=== PATIENT | female | born 1950 | race Two or more races ===

== ENCOUNTER 2016-10-24 13:27 | Emergency (ER) | payer MEDICAID, OTHER ==
--- NOTE | 2016-10-24 14:25 | ER Document Report ---
ED Medical Screen (RME) - General Chief Complaint: Breathing Difficulty Stated Complaint: BREATHING PROBLEMS Time seen by provider: 14:20 Mode of Arrival: Ambulatory TRAVEL OUTSIDE OF THE [place] IN LAST 30 DAYS: No - HPI Patient complains to provider of: DRY COUGH, COPD ACTING UP, DIFFICULTY BREATHING Onset: Other - LAST NIGHT, BETTER TODAY Onset/Duration: Intermittent Context: PT STATES SHE FEELS BETTER TODAY. Quality of pain: No pain Severity: None Pain Level: Denies Associated Symptoms: Cough (nonproductive), Hurts to breath, Shortness of breath. denies: Chest pain, Fever, Rhinorrhea, Sinus pain/drainage Exacerbated by: Coughing Relieved by: Other - INHALER Similar symptoms previously: Yes Recently seen / treated by doctor: Yes - [facility] - Related Data Smoking: Quit greater than 1 year Frequency of alcohol use: None Drug Abuse: None Pertinent History: COPD Allergies/Adverse Reactions: peanut Allergy (Intermediate, Verified 10/24/16 13:41) Hives grape [Grape] Allergy (Mild, Verified 10/24/16 13:41) Hives tomato [Tomato] Allergy (Mild, Verified 10/24/16 13:41) Hives ciprofloxacin [From Cipro] Allergy (Verified 10/24/16 13:41) Difficulty breathing ciprofloxacin HCl [From Cipro] Allergy (Verified 10/24/16 13:41) Past Medical History - General Last Menstrual Period: n/a - Social History Frequency of alcohol use: None Drug Abuse: None - Past Medical History Cardiac Medical History: Reports: Hx Hypertension Pulmonary Medical History: Reports: Hx Asthma, Hx COPD Neurological Medical History: GI Medical History: Reports: Hx Gastroesophageal Reflux Disease Musculoskeltal Medical History: Reports Hx Arthritis, Reports Hx Musculoskeletal Trauma - Wrist Traumatic Medical History: Reports: Hx Fractures - Wrist Past Surgical History: Reports: Hx Breast Surgery - mass removed, Hx Cholecystectomy, Hx Hysterectomy, Hx Orthopedic Surgery - left foot - Immunizations Hx Diphtheria, Pertussis, Tetanus Vaccination: No Physical Exam - Vital signs Vitals: Temp Pulse Resp BP Pulse Ox 98.1 F 69 16 115/69 99 10/24/16 13:38 10/24/16 13:38 10/24/16 13:38 10/24/16 13:38 10/24/16 13:38 Course - Vital Signs Vital signs: Temp Pulse Resp BP Pulse Ox 98.1 F 69 16 115/69 99 01/03/17 13:38 10/24/16 13:38 10/24/16 13:38 10/24/16 13:38 10/24/16 13:38
[2016-10-24] MEDS ORDERED: ALBUTEROL SULFATE 0.083% NEB 2.5 MG/3 ML AMPUL NEB ONE (14:29)
--- NOTE | 2016-10-24 17:39 | ER Document Report ---
ED Respiratory Problem - General Chief Complaint: Breathing Difficulty Stated Complaint: BREATHING PROBLEMS Mode of Arrival: Ambulatory Notes: Patient says she began to experience trouble breathing about 7 PM last night. [place] as if the right side of her lung was not expanding like the other side. She wasn't able to sleep the entire night nor today. Patient says this has happened to her previously in the recent past. Was not doing anything unusual. Was sitting at her computer when the onset of her symptoms. Patient has not had any significant cough or chest congestion or symptoms of a lung infection. Has not had any fever. She's not vomiting and not diarrhea, but has had some constipation. Patient is to be scheduled for a total knee replacement. She is getting pulmonary function test done to see if she can tolerate the procedure. She has seen a local steel fabricator whose diagnosed her with COPD. Patient has not smoked cigarettes in about 4-5 weeks. Patient has an albuterol nebulizer at home and an Advair inhaler. In the past when she's had episodes like this, she has used a relative's inhaler of albuterol and its relieved her symptoms. Patient denies being under stress or having significant anxiety, etc. Denies leg swelling or pains or any history of blood clots. TRAVEL OUTSIDE OF THE [place] IN LAST 30 DAYS: No - Related Data Allergies/Adverse Reactions: peanut Allergy (Intermediate, Verified 10/24/16 13:41) Hives grape [Grape] Allergy (Mild, Verified 10/24/16 13:41) Hives tomato [Tomato] Allergy (Mild, Verified 10/24/16 13:41) Hives ciprofloxacin [From Cipro] Allergy (Verified 10/24/16 13:41) Difficulty breathing ciprofloxacin HCl [From Cipro] Allergy (Verified 10/24/16 13:41) Past Medical History - General Information source: Patient Last Menstrual Period: n/a - Social History Smoking Status: Former Smoker Cigarette use (# per day): No Frequency of alcohol use: None Drug Abuse: None Family History: Reviewed & Not Pertinent, Arthritis, DM, Hyperlipidemia, Malignancy - Past Medical History Cardiac Medical History: Reports: Hx Hypertension Denies: Hx Coronary Artery Disease Pulmonary Medical History: Reports: Hx Asthma, Hx COPD Neurological Medical History: GI Medical History: Reports: Hx Gastroesophageal Reflux Disease Musculoskeltal Medical History: Reports Hx Arthritis, Reports Hx Musculoskeletal Trauma - Wrist Traumatic Medical History: Reports: Hx Fractures - Wrist Past Surgical History: Reports: Hx Breast Surgery - mass removed, Hx Cholecystectomy, Hx Hysterectomy, Hx Orthopedic Surgery - left foot - Immunizations Hx Diphtheria, Pertussis, Tetanus Vaccination: No Review of Systems - Review of Systems Notes: REVIEW OF SYSTEMS: CONSTITUTIONAL : Denies fever. EENT: Denies eye, ear, nose or mouth or throat pain or other symptoms. CARDIOVASCULAR: Denies chest pain. RESPIRATORY: Denies cough, chest congestion, or shortness of breath. See history of present illness. GASTROINTESTINAL: Denies abdominal pain or nausea, vomiting, or diarrhea. GENITOURINARY: Denies difficulty or painful urinating, urinary frequency, blood in urine. MUSCULOSKELETAL: Denies back or neck pain. Denies joint pain or swelling. SKIN: Denies rash or skin lesions. NEUROLOGICAL: Denies LOC or altered mental status. Denies headache. Denies sensory loss or motor deficits. PSYCHIATRIC: Denies anxiety or stress. Denies depression. ALL OTHER SYSTEMS REVIEWED AND NEGATIVE. Physical Exam - Vital signs Vitals: Temp Pulse Resp BP Pulse Ox 98.1 F 69 16 115/69 99 10/24/16 13:38 10/24/16 13:38 10/24/16 13:38 10/24/16 13:38 10/24/16 13:38 Interpretation: Normal - Notes Notes: PHYSICAL EXAMINATION: GENERAL: Well-appearing, in no acute distress. All vital signs normal. Not tachycardic. Not hypoxic. Not tachypnea. Anxious. HEAD: Atraumatic, normocephalic. NECK: Normal range of motion, supple. LUNGS: Breath sounds clear and equal bilaterally. No wheezes heard. Good air exchange bilaterally. HEART: Regular rate and rhythm without murmurs. ABDOMEN: Soft, nontender. No guarding or rebound. BACK: No tenderness throughout entire back. EXTREMITIES: Normal range of motion without pain. NEUROLOGICAL: Normal speech, normal gait. Normal sensory, motor, and reflex exams. Awake, alert, and oriented x3. Cranial nerves normal. PSYCH: Normal mood, normal affect. SKIN: Warm, dry, no rashes. Course - Re-evaluation Re-evalutation: 10/24/16 17:41 Patient looks very well. Has normal vital signs. Only waiting to find out her results of her chest x-ray which I told her is normal. Patient is agreeable to no further workup at this time and to return if she has recurrent or worsening or new symptoms. - Vital Signs Vital signs: Temp Pulse Resp BP Pulse Ox 98.1 F 69 16 115/69 99 10/24/16 13:38 10/24/16 13:38 10/24/16 13:38 10/24/16 13:38 10/24/16 13:38 - Diagnostic Test Radiology reviewed: Image reviewed, Reports reviewed - Chest x-ray shows no acute findings. Discharge - Discharge Clinical Impression: COPD (chronic obstructive pulmonary disease) Qualifiers: COPD type: unspecified COPD Qualified Code(s): J44.9 - Chronic obstructive pulmonary disease, unspecified Condition: Stable Disposition: HOME, SELF-CARE Additional Instructions: Chronic Obstructive Lung Disease You have chronic obstructive lung disease (COPD). The symptoms come from emphysema (damage to small airways, with trapping of air in large sacks in the lung) and chronic bronchitis (repeated infection and damage to larger airways). The cause is almost always cigarette smoking, although dust exposure, asthma, and infections contribute. You should avoid fumes, dust, and smoke (especially tobacco smoke). Your condition will flare from time to time. There is no cure, but the symptoms can be treated. Bronchodilators (asthma medicine) are often helpful. Antibiotics help when infection is present. When shortness of breath is severe, we may prescribe cortisone medication. If medicine doesn't help enough, we can arrange for you to have an oxygen tank at home. Notify your doctor at once if sputum becomes thick, foul, or bloody, if you develop a fever or chest pain, or if your shortness of breath worsens. NORMAL EXAM AND WORKUP: At this time, your examination and workup show no significant abnormality. No significant abnormal physical findings were noted. All laboratory, EKG, and imaging (x-ray, CT scans, ultrasound) studies that were ordered show no significant abnormality. Although your examination and all studies that were ordered showed no significant abnormal finding, there are no examinations and no studies that are 100% accurate. There is always the possibility that some abnormality could exist and not be detected with physical examination or within the limits and capabilities of laboratory and other studies. You should return or follow up as you were instructed on your visit today for further evaluation if your symptoms do not resolve. Bronchodilators You have received a prescription for a bronchodilator -- a medication which stimulates the airways in the lung to dilate. This improves the flow of air in asthma, bronchitis, and emphysema. These medicines have some similarity to adrenaline, and can cause similar side effects: shakiness, racing heart, and a sense of nervousness. These side effects decrease after you've taken the medicine a day or two. Contact your doctor if these side effects are severe. FOLLOW-UP CARE: If you have been referred to a physician for follow-up care, call the physician s office for an appointment as you were instructed or within the next two days. If you experience worsening or a significant change in your symptoms, notify the physician immediately or return to the Emergency Department at any time for re-evaluation. Return at any time if you develop new or worsening symptoms. Prescriptions: Albuterol Sulfate [Ventolin Hfa] 1 - 2 puff IH Q4HP PRN #1 [email or web address] PRN Reason:
[2016-10-24 17:54] VITALS: BP 124/73
== END 2016-10-24 17:55 | disposition home or self-care (01) ==
LOC: ER 13:27
DX: J44.9 Chronic obstructive pulmonary disease, unspecified (principal); R06.02 Shortness of breath; K59.00 Constipation, unspecified; Z87.891 Personal history of nicotine dependence
CPT/HCPCS: 71020; 94640; 99284

== ENCOUNTER → 2016-11-23 | Outpatient (CLI) | payer MEDICAID ==
[2016-11-23 15:59] LABS: APPEARANCE,URINE SLIGHTLY-CLOUDY; BILIRUBIN,URINE NEGATIVE (NEGATIVE); GLUCOSE, URINE NEGATIVE (NEGATIVE); KETONES,URINE TRACE mg/dL (NEGATIVE); LEUKOCYTE ESTERASE,URINE NEGATIVE (NEGATIVE); NITRITE,URINE NEGATIVE (NEGATIVE); PROTEIN,URINE NEGATIVE (NEGATIVE); URINE SPECIFIC GRAVITY 1.026; UROBILINOGEN,URINE NEGATIVE mg/dL (<2.0)
[2016-11-23 16:01] LABS: ABSOLUTE EOSINOPHILS # (AUTO) 0.2 10^3/uL (0.0-0.6); ABSOLUTE LYMPHOCYTES (AUTO) 1.9 10^3/uL (0.5-4.7); ABSOLUTE MONOCYTES (AUTO) 0.4 10^3/uL (0.1-1.4); ABSOLUTE NEUT (AUTO) 4.8 10^3/uL (1.7-8.2); BASOPHILS % (AUTO) 0.4 % (0-2); EOSINOPHILS % (AUTO) 2.9 % (0-6); HEMATOCRIT 33.1 % (36.0-47.0); HEMOGLOBIN 11.6 g/dL (12.0-15.5); HGB HCT DIFFERENCE 1.7; LYMPHOCYTES % (AUTO) 26.2 % (13-45); MEAN CORPUSCULAR HEMOGLOBIN 30.3 pg (27.0-33.4); MEAN CORPUSCULAR HGB CONC 34.9 g/dL (32.0-36.0); MEAN CORPUSCULAR VOLUME 87 fl (80-97); MONOCYTES % (AUTO) 5.3 % (3-13); RED BLOOD COUNT 3.82 10^6/uL (3.72-5.28); SEGMENTED NEUTROPHILS % (AUTO) 65.2 % (42-78); WHITE BLOOD COUNT 7.4 10^3/uL (4.0-10.5)
[2016-11-23 16:19] LABS: ANION GAP 12 (5-19); BLOOD UREA NITROGEN 24 mg/dL (7-20); CALCIUM 9.7 mg/dL (8.4-10.2); CARBON DIOXIDE 29 mmol/L (22-30); CHLORIDE 102 mmol/L (98-107); CREATININE RESULT 0.94 mg/dL (0.52-1.25)
[2016-11-23 16:24] LABS: GLUCOSE 100 mg/dL (75-110)
--- NOTE | 2016-11-23 22:13 | EKG REPORT ---
SEVERITY:- NORMAL ECG - SINUS RHYTHM : Confirmed by: David Thakkar 23-Nov-2016 22:12:41
== END ==
LOC: OD 14:46
PROVIDERS: ATTEND Orthopaedic Surgery
DX: Z01.810 Encounter for preprocedural cardiovascular examination (principal); Z01.811 Encounter for preprocedural respiratory examination; Z01.818 Encounter for other preprocedural examination; Z79.899 Other long term (current) drug therapy; M17.11 Unilateral primary osteoarthritis, right knee
CPT/HCPCS: 36415; 71020; 80048; 81001; 85025; 93005; 93010

== ENCOUNTER 2017-01-08 07:30 | Inpatient (IN) | payer MEDICAID ==
[2016-12-28 12:21] LABS: HEMATOCRIT 32.1 % (36.0-47.0); HGB HCT DIFFERENCE 0.9; MEAN CORPUSCULAR HEMOGLOBIN 29.8 pg (27.0-33.4); MEAN CORPUSCULAR HGB CONC 34.3 g/dL (32.0-36.0); MEAN CORPUSCULAR VOLUME 87 fl (80-97); RED CELL DISTRIBUTION WIDTH 12.6 % (11.5-14.0); WHITE BLOOD COUNT 7.4 10^3/uL (4.0-10.5)
[2016-12-28 12:31] LABS: APPEARANCE,URINE SLIGHTLY-CLOUDY; BILIRUBIN,URINE NEGATIVE (NEGATIVE); GLUCOSE, URINE NEGATIVE (NEGATIVE); KETONES,URINE NEGATIVE (NEGATIVE); LEUKOCYTE ESTERASE,URINE NEGATIVE (NEGATIVE); NITRITE,URINE NEGATIVE (NEGATIVE); PROTEIN,URINE NEGATIVE (NEGATIVE); URINE SPECIFIC GRAVITY 1.018; UROBILINOGEN,URINE NEGATIVE mg/dL (<2.0)
[2016-12-28 12:55] LABS: ANION GAP 10 (5-19); BLOOD UREA NITROGEN 22 mg/dL (7-20); CALCIUM 9.4 mg/dL (8.4-10.2); CARBON DIOXIDE 29 mmol/L (22-30); CHLORIDE 101 mmol/L (98-107); CREATININE RESULT 0.78 mg/dL (0.52-1.25); GLUCOSE 108 mg/dL (75-110); POTASSIUM 3.8 mmol/L (3.6-5.0); SODIUM 140.1 mmol/L (137-145)
[~2017-01-08 07:30] MED LIST: BUPIVACAINE INJ/PF LIPOSOME/PF 266 MG/20 ML SDV IJ PRN; CEFAZOLIN INJ 1 GM VIAL IV PRN; IBUPROFEN 800 MG/NS 250 ML IV PRN; LACTATED RINGERS 1000 ML IV PRN; LANSOPRAZOLE 15 MG TAB.RAP.DR PO PRN; LIDOCAINE 0.5% INJ-PF (5 MG/ML) 50 ML SDV SUBCUT PRN; OXYCODONE HCL SR 10 MG TABLET PO PRN; SCOPOLAMINE HYDROBROMIDE 1.5 MG PATCH.TD72 TOP PRN; VANCOMYCIN HCL 1,000 MG in DEXTROSE 5%-WATER 250 ML IV PRN
[2017-01-08] MEDS ORDERED: GLYCOPYRROLATE INJ 0.4 MG/2 ML VIAL ONE (08:16)
[2017-01-08] MEDS ORDERED: LIDOCAINE 2% INJ-PF (20 MG/ML) 10 ML AMPUL ONE (08:16)
[2017-01-08] MEDS ORDERED: ONDANSETRON HCL INJ/PF 4 MG/2 ML SDV ONE (08:16)
[2017-01-08] MEDS ORDERED: METOCLOPRAMIDE HCL INJ/PF 10 MG/2 ML SDV ONE (08:16)
[2017-01-08] MEDS ORDERED: THROMBIN (BOVINE) 5000 UNIT EPITAXIS KIT ONE (10:28)
[2017-01-08] MEDS ORDERED: BUPIVACAINE INJ/PF LIPOSOME/PF 266 MG/20 ML SDV ONE (10:28)
[2017-01-08] MEDS ORDERED: THROMBIN (BOVINE) TOPICAL 20000 UNIT VIAL ONE (10:28)
[2017-01-08] MEDS ORDERED: MIDAZOLAM 2 MG/2 ML INJ ONE (10:53)
[2017-01-08] MEDS ORDERED: FENTANYL CITRATE INJ/PF 100 MCG/2 ML AMPUL ONE (10:53)
[2017-01-08] MEDS ORDERED: PROPOFOL INJ 200 MG/20 ML VIAL IV ONE (10:54)
[2017-01-08] MEDS ORDERED: TRANEXAMIC ACID INJ/PF 1,000 MG/10 ML SDV IV ONE (10:54)
[2017-01-08] MEDS ORDERED: DEXMEDETOMIDINE INJ 80 MCG/20 ML VIAL IV ONE (10:54)
[2017-01-08] MEDS ORDERED: FENTANYL CITRATE INJ/PF 100 MCG/2 ML AMPUL IV PRN ×3 (11:10)
[2017-01-08] MEDS ORDERED: PROMETHAZINE HCL INJ 25 MG/1 ML VIAL IV PRN ×2 (11:10)
[2017-01-08] MEDS ORDERED: MEPERIDINE HCL/PF INJ 25 MG/1 ML DISP.SYRIN IV PRN (11:10)
[2017-01-08] MEDS ORDERED: DIPHENHYDRAMINE HCL 50 MG/ML VIAL IV PRN ×2 (11:10→12:28)
[2017-01-08] MEDS ORDERED: OXYCODONE-ACETAMINOPHEN 5-325 MG TABLET PO PRN ×2 (11:10)
[2017-01-08] MEDS ORDERED: MORPHINE SULFATE 10 MG/ML INJ IV PRN ×3 (11:10→12:28)
[2017-01-08] MEDS ORDERED: MAG HYDROX/AL HYDROX/SIMETH SUSP 30 ML UDCUP PO PRN (12:28)
[2017-01-08] MEDS ORDERED: ACETAMINOPHEN 325 MG TABLET PO PRN (12:28)
[2017-01-08] MEDS ORDERED: MORPHINE SULFATE 10 MG/ML INJ IM PRN (12:28)
[2017-01-08] MEDS ORDERED: ZOLPIDEM TARTRATE 5 MG TABLET PO PRN (12:28)
[2017-01-08] MEDS ORDERED: ALBUTEROL SULFATE HFA (90 MCG/PUFF) 8 GM MDI (1 MDI/ER DISP) IH PRN (12:28)
[2017-01-08] MEDS ORDERED: ONDANSETRON HCL INJ/PF 4 MG/2 ML SDV IV PRN (12:28)
[2017-01-08] MEDS ORDERED: ONDANSETRON 4 MG TAB.RAPDIS PO PRN (12:28)
--- NOTE | 2017-01-08 12:28 | Operative Report ---
Operative Report DATE OF SURGERY: 01/08/17 PREOPERATIVE DIAGNOSIS: Right knee arthritis OPERATION: Right knee arthroplasty SURGEON: ESTER ARMSTRONG ANESTHESIA: Spinal PROCEDURE: Implants used: Femur: Striker triathlon #6 CR femur Tibia:, #5 tibia Tibial liner:, 9 mm CS insert Patella:, 32 mm oval patella Procedure with the patient supine on the operating table the, right the limb is prepped and draped in a sterile fashion. The limb was elevated for exsanguination and the tourniquet inflated to 280 torr. A standard midline median parapatellar approach the knee is taken. Access is gained to the femoral canal through the intercondylar notch. Intramedullary alignment instrumentation used to resect 10 mm of distal femur in 5 of valgus. Sizing guide indicated a size, 6 femur. Appropriate cutting jig is then used to fashion anterior posterior and chamfer cuts. A trial reduction femurs performed and this is judged to be adequate. Attention was next turned to the tibia. Using an extra medullary alignment system 9 millimeters was resected off the lateral tibial plateau. This is sized to a size 5 tibia. A trial reduction was now performed with a 6 femur and a. 5 tibia using a 9 millimeters spacer. It is full extension and central patellofemoral tracking. The articular surface the patella was next resected using an oscillating saw. All trial implants were removed. Polymethylmethacrylate is mixed and used to cement the above implants in place. On adequate curing the cement excess cement was removed the tourniquet was deflated hemostasis obtained the wound is then closed in layers using interrupted Vicryl followed by blair. A sterile compressive dressing was applied and the patient returned to recovery room in satisfactory condition.
[2017-01-08] MEDS: OXYCODONE HCL IR 5 MG TABLET PO PRN (15:29)
[2017-01-08] MEDS: MORPHINE SULFATE 10 MG/ML INJ IV PRN ×3 (16:31→19:13)
[2017-01-08] MEDS: SENNOSIDES/DOCUSATE 8.6-50 MG 1 EACH TABLET PO SCH (17:01)
--- NOTE | 2017-01-08 18:32 | EKG REPORT ---
SEVERITY:- NORMAL ECG - SINUS RHYTHM : Confirmed by: Bronson Vicente MD 08-Jan-2017 18:31:36
[2017-01-08] MEDS: FLUTICASONE/SALMETEROL DISKUS 250-50 MCG/DOSE IH SCH (21:07)
[2017-01-08] MEDS: PREGABALIN 75 MG CAPSULE PO SCH (21:07)
[2017-01-08] MEDS: RIVAROXABAN 10 MG TABLET PO SCH (21:07)
[2017-01-08] MEDS ORDERED: OXYCODONE HCL SR 10 MG TABLET PO SCH (22:00)
[2017-01-09] MEDS: OXYCODONE HCL IR 5 MG TABLET PO PRN ×3 (00:52→19:38)
[2017-01-09] MEDS ORDERED: VANCOMYCIN HCL 1,000 MG in DEXTROSE 5%-WATER 250 ML IV ONE (01:00)
[2017-01-09] MEDS: MORPHINE SULFATE 10 MG/ML INJ IV PRN ×3 (06:05→08:45)
[2017-01-09 07:09] LABS: HEMOGLOBIN 9.6 g/dL (12.0-15.5); HGB HCT DIFFERENCE 0.8; MEAN CORPUSCULAR HEMOGLOBIN 29.2 pg (27.0-33.4); MEAN CORPUSCULAR HGB CONC 34.2 g/dL (32.0-36.0); MEAN CORPUSCULAR VOLUME 85 fl (80-97); RED BLOOD COUNT 3.28 10^6/uL (3.72-5.28)
[2017-01-09 07:34] LABS: ANION GAP 12 (5-19); BLOOD UREA NITROGEN 14 mg/dL (7-20); CALCIUM 9.3 mg/dL (8.4-10.2); CARBON DIOXIDE 24 mmol/L (22-30); CHLORIDE 102 mmol/L (98-107); CREATININE RESULT 0.63 mg/dL (0.52-1.25); GLUCOSE 147 mg/dL (75-110); POTASSIUM 3.9 mmol/L (3.6-5.0)
[2017-01-09] MEDS: HYDROCHLOROTHIAZIDE 12.5 MG CAPSULE PO SCH (07:52)
[2017-01-09] MEDS: LISINOPRIL 10 MG TABLET PO SCH (07:52)
[2017-01-09] MEDS ORDERED: (PENDING PHARMACY ID) (Lisinopril/Hydrochlorothiazide [Lisinopril-Hctz 20-12.5 Mg Tab] 1 E PO SCH (08:00)
[2017-01-09] MEDS ORDERED: DIAZEPAM 5 MG TABLET PO PRN (08:23)
[2017-01-09] MEDS: OXYCODONE HCL SR 40 MG TABLET PO SCH ×2 (09:55→21:27)
[2017-01-09] MEDS: PRENATAL VITAMIN W-O CA NO5/FE FUMARATE/FA CAPSULE PO SCH (09:56)
[2017-01-09] MEDS: SENNOSIDES/DOCUSATE 8.6-50 MG 1 EACH TABLET PO SCH ×2 (09:56→17:06)
[2017-01-09] MEDS: FLUTICASONE/SALMETEROL DISKUS 250-50 MCG/DOSE IH SCH ×2 (09:56→21:27)
[2017-01-09] MEDS: PREGABALIN 75 MG CAPSULE PO SCH ×2 (09:56→21:27)
[2017-01-09] MEDS: RIVAROXABAN 10 MG TABLET PO SCH (21:27)
[2017-01-10] MEDS: OXYCODONE HCL IR 5 MG TABLET PO PRN ×2 (05:44→21:49)
[2017-01-10 06:45] LABS: HEMATOCRIT 28.5 % (36.0-47.0); HEMOGLOBIN 9.6 g/dL (12.0-15.5); HGB HCT DIFFERENCE 0.3; MEAN CORPUSCULAR HEMOGLOBIN 29.1 pg (27.0-33.4); MEAN CORPUSCULAR HGB CONC 33.9 g/dL (32.0-36.0); MEAN CORPUSCULAR VOLUME 86 fl (80-97); RED BLOOD COUNT 3.31 10^6/uL (3.72-5.28); RED CELL DISTRIBUTION WIDTH 13.3 % (11.5-14.0); WHITE BLOOD COUNT 10.9 10^3/uL (4.0-10.5)
--- NOTE | 2017-01-10 07:12 | PDOC PROGRESS REPORT ---
Subjective Progress Note for:: 01/10/17 Subjective:: Patient with minor complaints of pain Physical Exam Vital Signs: Temp Pulse Resp BP Pulse Ox 37.5 C 90 18 100/62 95 01/09/17 23:58 01/09/17 23:58 01/09/17 23:58 01/09/17 23:58 01/09/17 23:58 Intake & Output 01/09/17 01/10/17 01/11/17 06:59 06:59 06:59 Intake Total 3470 1510 Output Total 1900 1000 Balance 1570 510 General appearance: PRESENT: mild distress Head exam: PRESENT: normocephalic Eye exam: PRESENT: EOMI Respiratory exam: PRESENT: unlabored Cardiovascular exam: PRESENT: RRR Pulses: PRESENT: +1 pedal pulses bilateral Vascular exam: PRESENT: normal capillary refill GI/Abdominal exam: PRESENT: soft Rectal exam: PRESENT: deferred Extremities exam: PRESENT: other - Right lower extremity dressing clean dry and intact. Distal neurovascular examinations intact. Neurological exam: PRESENT: alert, awake, oriented to person, oriented to place , oriented to time, oriented to situation. ABSENT: motor sensory deficit Psychiatric exam: PRESENT: appropriate affect, normal mood. ABSENT: homicidal ideation, suicidal ideation Skin exam: PRESENT: dry, intact, warm. ABSENT: cyanosis, rash Results Laboratory Results: 01/10/17 05:58 01/09/17 06:47 01/09/17 01/09/17 01/10/17 06:47 06:47 05:58 WBC 12.0 H 10.9 H RBC 3.28 L 3.31 L Hgb 9.6 L 9.6 L Hct 28.0 L 28.5 L MCV 85 86 MCH 29.2 29.1 MCHC 34.2 33.9 RDW 13.0 13.3 Plt Count 211 219 Sodium 138.0 Potassium 3.9 Chloride 102 Carbon Dioxide 24 Anion Gap 12 BUN 14 Creatinine 0.63 Est GFR ( Amer) > 60 Est GFR (Non-Af Amer) > 60 Glucose 147 H Calcium 9.3 Impressions: Knee X-Ray 01/08/17 12:29 IMPRESSION: Postoperative imaging. Status: Imported from PACS Assessment & Plan - Diagnosis (1) Arthritis of right knee Is this a current diagnosis for this admission?: YesPlan: 66-year-old female status post right knee arthroplasty, postop day 2. Uneventful postoperative course. Anticipate discharge to senior living facility tomorrow. - Time Time Spent with patient: 15-24 minutes Anticipated discharge: SNF Within: within 24 hours
[2017-01-10] MEDS ORDERED: NORMAL SALINE 1000 ML 1,000 ML IV PRN (09:15)
[2017-01-10] MEDS ORDERED: NORMAL SALINE 500 ML IV ONE (10:00)
[2017-01-10] MEDS: OXYCODONE HCL SR 40 MG TABLET PO SCH ×2 (10:41→21:49)
[2017-01-10] MEDS: PRENATAL VITAMIN W-O CA NO5/FE FUMARATE/FA CAPSULE PO SCH (10:41)
[2017-01-10] MEDS: PREGABALIN 75 MG CAPSULE PO SCH ×2 (10:42→21:49)
[2017-01-10] MEDS: SENNOSIDES/DOCUSATE 8.6-50 MG 1 EACH TABLET PO SCH ×2 (10:42→17:16)
[2017-01-10] MEDS: FLUTICASONE/SALMETEROL DISKUS 250-50 MCG/DOSE IH SCH ×2 (10:42→21:49)
[2017-01-10] MEDS: CALCIUM CARBONATE 500 MG TAB.CHEW PO PRN ×2 (12:04→19:42)
[2017-01-10] MEDS: LISINOPRIL 10 MG TABLET PO SCH (14:47)
[2017-01-10] MEDS: HYDROCHLOROTHIAZIDE 12.5 MG CAPSULE PO SCH (14:47)
[2017-01-10] MEDS: RIVAROXABAN 10 MG TABLET PO SCH (21:49)
[2017-01-11] MEDS: OXYCODONE HCL IR 5 MG TABLET PO PRN (04:44)
[2017-01-11 04:58] LABS: HEMATOCRIT 24.9 % (36.0-47.0); HEMOGLOBIN 8.6 g/dL (12.0-15.5); HGB HCT DIFFERENCE 0.9; MEAN CORPUSCULAR HEMOGLOBIN 29.5 pg (27.0-33.4); MEAN CORPUSCULAR HGB CONC 34.5 g/dL (32.0-36.0); MEAN CORPUSCULAR VOLUME 86 fl (80-97); WHITE BLOOD COUNT 9.2 10^3/uL (4.0-10.5)
--- NOTE | 2017-01-11 06:51 | PDOC TRANSFER SUMMARY ---
General - Admit/Disc Date/PCP Admission Date/Primary Care Provider: 01/08/17 09:23 MECHE HASTINGS MD Discharge Date: 01/11/17 - Discharge Diagnosis (1) Arthritis of right knee Is this a current diagnosis for this admission?: Yes - Additional Information Resuscitation Status: Full Code Discharge Diet: As Tolerated, Regular Discharge Activity: Activity As Tolerated, Balance Activity w/Rest, No Driving Home Medications: Meloxicam [Mobic 15 Mg Tablet] 15 mg PO QAM 02/12/12 Tramadol HCl [Ultram 50 mg Tablet] 100 mg PO BID PRN 02/12/12 Albuterol Sulfate [Proair Hfa] 8.5 gm IH Q4 PRN 12/26/16 Fluticasone/Salmeterol [Advair 250-50 Diskus 28 dose] 1 inh IH Q12H 12/26/16 Lisinopril/Hydrochlorothiazide [Lisinopril-Hctz 20-12.5 mg Tab] 1 each PO QAM History of Present Illness Admission Date/PCP: 01/08/17 09:23 MECHE HASTINGS MD History of Present Illness: OXANA JORDAN is a 66 year old female who presents with progressive right knee pain and functional disability secondary osteoarthritis. Patient's admitted for elective right knee arthroplasty. Hospital Course Hospital Course: Patient submitted to the operating room where she undergoes an uncompensated right knee arthroplasty. She's returned to floor in satisfactory condition. She started on a physical therapy program. She makes excellent progress. She subsequently ready for discharge to [facility]. Physical Exam Vital Signs: Temp Pulse Resp BP Pulse Ox 36.9 C 86 14 106/60 100 01/10/17 23:35 01/10/17 23:35 01/10/17 19:55 01/10/17 23:35 01/10/17 23:35 Intake & Output 01/09/17 01/10/17 01/11/17 06:59 06:59 06:59 Intake Total 3470 1510 1000 Output Total 1900 1000 1100 Balance 1570 510 -100 General appearance: PRESENT: no acute distress Head exam: PRESENT: normocephalic Respiratory exam: PRESENT: unlabored Cardiovascular exam: PRESENT: RRR Pulses: PRESENT: +1 pedal pulses bilateral GI/Abdominal exam: PRESENT: soft Rectal exam: PRESENT: deferred Extremities exam: PRESENT: +1 edema Musculoskeletal exam: PRESENT: other - Right knee peak oh dressing is clean dry and intact. Pedal edema. Distal neurovascular examinations intact. Neurological exam: PRESENT: alert, awake, oriented to person, oriented to place , oriented to time, oriented to situation. ABSENT: motor sensory deficit Psychiatric exam: PRESENT: appropriate affect, normal mood. ABSENT: homicidal ideation, suicidal ideation Skin exam: PRESENT: dry, intact, warm. ABSENT: cyanosis, rash Results Laboratory Results: 01/11/17 04:11 01/09/17 06:47 01/11/17 04:11 WBC 9.2 RBC 2.90 L Hgb 8.6 L Hct 24.9 L MCV 86 MCH 29.5 MCHC 34.5 RDW 13.0 Plt Count 184 Impressions: Knee X-Ray 01/08/17 12:29 IMPRESSION: Postoperative imaging. Transfer Plan - Disposition Transfer Plan: [facility] be transferred to [facility] for ongoing rehabilitation focused on right knee range of motion, strengthening, and weightbearing as tolerated ambulation. Right knee peak her dressing can be changed on postop day 7 replace with an OpSite. Plan Discharge Plan: Patient to return to see Dr. Gerardo in the [facility] for surgery in 2 weeks for staple removal.
[2017-01-11] MEDS: CALCIUM CARBONATE 500 MG TAB.CHEW PO PRN ×2 (08:45→12:01)
[2017-01-11] MEDS: LISINOPRIL 10 MG TABLET PO SCH (08:46)
[2017-01-11] MEDS: HYDROCHLOROTHIAZIDE 12.5 MG CAPSULE PO SCH (08:46)
[2017-01-11] MEDS: SENNOSIDES/DOCUSATE 8.6-50 MG 1 EACH TABLET PO SCH (09:27)
[2017-01-11] MEDS: FLUTICASONE/SALMETEROL DISKUS 250-50 MCG/DOSE IH SCH (09:28)
[2017-01-11] MEDS: PRENATAL VITAMIN W-O CA NO5/FE FUMARATE/FA CAPSULE PO SCH (09:28)
[2017-01-11] MEDS: PREGABALIN 75 MG CAPSULE PO SCH (09:28)
[2017-01-11] MEDS ORDERED: OXYCODONE HCL SR 10 MG TABLET PO SCH (10:00)
[2017-01-11] MEDS ORDERED: ALBUTEROL SULFATE HFA (90 MCG/PUFF) 200 PUFF/8.5 GM MDI IH PRN (12:30)
[2017-01-11 15:52] VITALS: BP 92/58
== END 2017-01-11 17:17 | DRG 470 ==
LOC: INOR 09:23 → 4S 13:24
PROVIDERS: ADMIT Orthopaedic Surgery; ATTEND Orthopaedic Surgery
PROC: 0SRC0J9 Replacement of Right Knee Joint with Synthetic Substitute, Cemented, Open Approach (ICD-10-PCS; principal; 2017-01-08 11:30)
DX: M17.11 Unilateral primary osteoarthritis, right knee (principal); I10 Essential (primary) hypertension; Z90.710 Acquired absence of both cervix and uterus; Z88.3 Allergy status to other anti-infective agents; Z91.010 Allergy to peanuts; Z91.018 Allergy to other foods; Z79.899 Other long term (current) drug therapy
CPT/HCPCS: 01402; 36415; 80048; 81001; 84132; 85027; 88305; 88311; 93005; 93010; 94799; C1877; C9290; J0690; J1200; J1741; J2250; J2270; J2405; J2704; J2765; J3010; J3370; J3490; J7030; J7050; J7060; S0119

== ENCOUNTER 2017-07-20 23:44 | Emergency (ER) | payer MEDICAID ==
--- NOTE | 2017-07-21 00:08 | ER Document Report ---
ED Fall - General Chief Complaint: Fall Injury Stated Complaint: FALL Time Seen by Provider: 07/21/17 00:04 Notes: The patient is a 66-year-old female, past medical history OA, left wrist fracture in the past, right knee replacement 01/05, presents after mechanical fall where she tripped walking and landed on her right arm. Her roommate who witnessed the fall said that she may have hit her head. She is complaining of right wrist pain. She was given 60 mg IM Toradol by EMS prior to arrival. Patient is moving to [facility] tomorrow. She denies elbow pain, numbness, tingling, open wounds, headache, neck pain, blurry vision, nausea, vomiting, focal weakness or ataxia. TRAVEL OUTSIDE OF THE [place] IN LAST 30 DAYS: No - Related data Allergies/Adverse Reactions: almond Allergy (Intermediate, Verified 01/08/17 10:07) Hives peanut Allergy (Intermediate, Verified 01/08/17 10:07) Hives grape [Grape] Allergy (Mild, Verified 01/08/17 10:07) Hives tomato [Tomato] Allergy (Mild, Verified 01/08/17 10:07) Hives ciprofloxacin [From Cipro] Allergy (Verified 01/08/17 10:07) Difficulty breathing Past Medical History - General Information source: Patient - Social History Smoking Status: Former Smoker Family History: Reviewed & Not Pertinent, Arthritis, DM, Hyperlipidemia, Malignancy - Past Medical History Cardiac Medical History: Reports: Hx Hypertension - 2 years/takes meds Denies: Hx Atrial Fibrillation, Hx Congestive Heart Failure, Hx Coronary Artery Disease, Hx Heart Attack, Hx Hypercholesterolemia, Hx Peripheral Vascular Disease, Hx Pulmonary Embolism, Hx Heart Murmur Pulmonary Medical History: Reports: Hx Asthma, Hx Bronchitis - Many years ago, Hx COPD Denies: Hx Pneumonia, Hx Respiratory Failure, Hx Sleep Apnea, Hx Tuberculosis Neurological Medical History: Renal/ Medical History: Denies: Hx Ovarian Cysts, Hx Pelvic Inflammatory Disease Malignancy Medical History: Reports: Hx Cervical Cancer. Denies: Hx Breast Cancer, Hx Lung Cancer, Hx Ovarian Cancer GI Medical History: Reports: Hx Gastroesophageal Reflux Disease - occ.. Denies : Hx Crohn's Disease, Hx Hiatal Hernia, Hx Irritable Bowel, Hx Liver Failure, Hx Ulcer Musculoskeltal Medical History: Reports Hx Arthritis, Denies Hx Fibromyalgia, Denies Hx Muscular Dystrophy, Reports Hx Musculoskeletal Trauma - Wrist Traumatic Medical History: Reports: Hx Fractures - Left Wrist, Left Foot Past Surgical History: Reports: Hx Breast Surgery - mass removed, Hx Cholecystectomy, Hx Hysterectomy, Hx Orthopedic Surgery - left foot. Denies: Hx Appendectomy, Hx Bowel Surgery, Hx Section, Hx Colostomy, Hx Coronary Artery Bypass Graft, Hx Gastric Bypass Surgery, Hx Herniorrhaphy, Hx Mastectomy, Hx Pacemaker, Hx Tonsillectomy, Hx Tubal Ligation - Immunizations Hx Diphtheria, Pertussis, Tetanus Vaccination: No Review of Systems - Review of Systems Notes: REVIEW OF SYSTEMS: CONSTITUTIONAL: -fevers, -chills EENT: -eye pain, -difficulty swallowing, -nasal congestion CARDIOVASCULAR:-chest pain, -syncope. RESPIRATORY: -cough, -SOB GASTROINTESTINAL: -abdominal pain, - nausea, -vomiting, -diarrhea GENITOURINARY: -dysuria, -hematuria MUSCULOSKELETAL: +right wrist pain, -back pain, -neck pain SKIN: -rash or skin lesions. HEMATOLOGIC: -easy bruising or bleeding. LYMPHATIC: -swollen, enlarged glands. NEUROLOGICAL: -altered mental status or loss of consciousness, -headache, - neurologic symptoms PSYCHIATRIC: -anxiety, -depression. ALL OTHER SYSTEMS REVIEWED AND NEGATIVE. Physical Exam - Vital signs Vitals: Temp Pulse Resp BP Pulse Ox 98.1 F 81 18 131/79 H 97 07/21/17 00:07/21/17 00:07/21/17 00:07/21/17 00:07/21/17 00:14 - Notes Notes: PHYSICAL EXAMINATION: GENERAL: Well-appearing, well-nourished and in no acute distress. HEAD: Atraumatic, normocephalic. EYES: Pupils equal round and reactive to light, extraocular movements intact, sclera anicteric, conjunctiva are normal. ENT: nares patent, oropharynx clear without exudates. Moist mucous membranes. NECK: Normal range of motion, supple without lymphadenopathy LUNGS: Breath sounds clear to auscultation bilaterally and equal. No wheezes rales or rhonchi. HEART: Regular rate and rhythm without murmurs ABDOMEN: Soft, nontender, normoactive bowel sounds. No guarding, no rebound. No masses appreciated. EXTREMITIES: Right wrist deformity, brisk capillary refill, non-tender elbow, sensation intact distally from injury NEUROLOGICAL: Cranial nerves grossly intact. Normal speech, normal gait. Normal sensory and motor exams. PSYCH: Normal mood, normal affect. SKIN: Warm, Dry, normal turgor, no rashes or lesions noted. Course - Re-evaluation Re-evalutation: Pt with comminuted right distal radius and ulnar styloid fracture after a fall. She is neurovascularly intact distally. Her head CT does not show any acute abnormalities. Attempted to reduce patient's fracture, but it is unstable and would revert back to its fractured position. Pt's wrist splinted and she remains neurovascularly intact distally with strong pulses and brisk capillary refills. She is moving to [facility] today and has already has an orthopedist to follow-up with. Spoke to her about proper use of narcotics and the risks associated with it. She understands. - Vital Signs Vital signs: Temp Pulse Resp BP Pulse Ox 98.1 F 82 16 116/69 100 07/21/17 00:14 07/21/17 02:07 07/21/17 02:16 07/21/17 02:16 07/21/17 02:16 - Diagnostic Test Radiology reviewed: Image reviewed, Reports reviewed Radiology results interpreted by me: Right wrist x-ray: Extensive comminuted fracture of the right distal radius. Fracture of the right ulnar styloid. CT Head: NAD Procedures - Conscious Sedation Conscious sedation Time started: 01:30 Time completed: 02:00 Consent obtained: Yes Indication: Right wrist fracture Last meal: 1500 Pt with a mild systemic disease.: P2. - ASA Classification. Airway Evaluation: Normal anatomy Mallampati Classification: Class 1 Used during procedure: Suction available, IV access obtained, Pulse ox on pt., media monitor on pt. Medications administered: Diprivan Reversal agents: None I personally performed/intraservice time: Sedation, Procedure, 30 min or less Complications: No - Immobilization Right Wrist Time completed: 01:50 Pre-Proc Neuro Vasc Exam: Normal Immobilizer type: Sugar tong, Sling Performed by: Provider, PCT Post-Proc Neuro Vasc Exam: Unchanged from pre-exam Alignment checked and good: Yes - Joint Reduction/Fracture Care Right Wrist Time completed: 01:45 Consent obtained: Yes Conscious sedation: Yes Pre-procedure NV exam: Yes Fracture: Closed Manipulation comment: Fracture unstable and easily moves. Post-procedure NV exam: Yes Post-reduction x-ray: Joint reduced Reduction attempts: 2 Complications: No Discharge - Discharge Clinical Impression: Right wrist fracture Qualifiers: Encounter type: initial encounter Fracture type: closed Qualified Code(s): S62.101A - Fracture of unspecified carpal bone, right wrist, initial encounter for closed fracture Condition: Stable Disposition: HOME, SELF-CARE Additional Instructions: When you move to [facility] tomorrow, call up an orthopedic surgeon for follow-up. Keep your wrist in the splint and sling in place. Percocet for any pain, but do not drive. Return if you have any worsening pain, numbness or any other concerns. Fractured Radius and Ulna Both bones of the forearm, the radius and the ulna, are fractured. This type of fracture is typically caused by falling onto the outstretched hand. The fractures are not serious, however, and should heal well with adequate protection. Your physician's evaluation shows the bones are now in good position to heal. A cast or splint is used to protect the fractures. For the first few days after the injury, the arm should be elevated and ice packed. Most often, a splint is used first, with a cast later on. Healing takes from four to eight weeks, depending on the age of the patient and the seriousness of the broken bones. Your doctor has explained the treatment plan. It's important that you follow up as instructed to prevent complications. Call the doctor or return at once if severe pain or swelling occur, or if the hand becomes numb, swollen, or discolored. Prescriptions: Oxycodone HCl/Acetaminophen [Percocet 5-325 mg Tablet] 1 - 2 tab PO Q4H PRN #25 tablet PRN Reason: Referrals: KARLOS SPENCER MD [Primary Care Provider] - Follow up as needed ESTER ARMSTRONG MD [ACTIVE STAFF] - Follow up as needed
[2017-07-21] MEDS ORDERED: PROPOFOL INJ 200 MG/20 ML VIAL IV ONE (00:35)
[2017-07-21] MEDS ORDERED: MORPHINE SULFATE 10 MG/ML INJ IV ONE (00:35)
[2017-07-21] MEDS ORDERED: NORMAL SALINE 1000 ML 1,000 ML IV ONE (00:36)
--- NOTE | 2017-07-21 01:16 | RADIOLOGY REPORT (SQ) ---
EXAM DESCRIPTION: WRIST RIGHT 3 VIEWS COMPLETED DATE/TIME: 07/21/2017 12:29 am REASON FOR STUDY: fall COMPARISON: None. NUMBER OF VIEWS: Three views. TECHNIQUE: AP, lateral, and oblique radiographic images acquired of the right wrist. LIMITATIONS: None. FINDINGS: MINERALIZATION: Diminished. BONES: Comminuted intra-articular fracture of the distal radius with up to 0.4 cm lateral displacemen t and 1.6 cm impaction and moderate associated swelling. Fracture of the ulnar styloid base. Modera te osteoarthritis of the 1st carpometacarpal joint. No evidence of healing. SOFT TISSUES: As above. OTHER: No other significant finding. IMPRESSION: Extensive comminuted fracture of the right distal radius. Fracture of the right ulnar s tyloid. TECHNICAL DOCUMENTATION: JOB ID: [id number] [employer]- All Rights Reserved
[2017-07-21 02:28] VITALS: BP 116/69
--- NOTE | 2017-07-21 03:20 | RADIOLOGY REPORT (SQ) ---
EXAM DESCRIPTION: CT HEAD WITHOUT COMPLETED DATE/TIME: 07/21/2017 2:59 am REASON FOR STUDY: fall, head injury COMPARISON: 03/23/2007. TECHNIQUE: Axial images acquired through the brain without intravenous contrast. Images reviewed wi th bone, brain and subdural windows. Images stored on PACS. All CT scanners at this facility use dose modulation, iterative reconstruction, and/or weight based d osing when appropriate to reduce radiation dose to as low as reasonably achievable (ALARA). [facility]: Dose Right [facility]: CareDose [facility]: Dose Right [facility]: Teradose 4D [facility]: Mineful RADIATION DOSE: Up-to-date CT equipment and radiation dose reduction techniques were employed. CTDIv ol: 64.6 mGy. DLP: 1163 mGy-cm. mGy. LIMITATIONS: None. FINDINGS: VENTRICLES: Normal size and contour. CEREBRUM: No masses. No hemorrhage. No midline shift. No evidence for acute infarction. Normal gra y/white matter differentiation. No areas of low density in the white matter. CEREBELLUM: No masses. No hemorrhage. No alteration of density. No evidence for acute infarction. EXTRAAXIAL SPACES: No fluid collections. No masses. ORBITS AND GLOBE: No intra- or extraconal masses. Normal contour of globe without masses. CALVARIUM: No fracture. PARANASAL SINUSES: No fluid or mucosal thickening. SOFT TISSUES: No mass or hematoma. OTHER: No other significant finding. IMPRESSION: NORMAL BRAIN CT WITHOUT CONTRAST. EVIDENCE OF ACUTE STROKE: NO. COMMENT: Quality ID # [id number]: Final reports with documentation of one or more dose reduction techniques (e.g., Automated exposure control, adjustment of the mA and/or kV according to patient size, use of iterative reconstruction technique) TECHNICAL DOCUMENTATION: JOB ID: [id number] [employer]- All Rights Reserved
[2017-07-21] MEDS ORDERED: HYDROCODONE/ACETAMINOPHEN 5-325 MG 6 TAB/DSPK PO PRN (03:45)
[2017-07-21] MEDS ORDERED: HYDROCODONE/ACETAMINOPHEN 5-325 MG 6 TAB/DSPK ONE (03:51)
--- NOTE | 2017-07-21 04:21 | RADIOLOGY REPORT (SQ) ---
EXAM DESCRIPTION: ELBOW RIGHT OVER 2 VIEWS COMPLETED DATE/TIME: 07/21/2017 3:52 am REASON FOR STUDY: fall COMPARISON: None. NUMBER OF VIEWS: Four views. TECHNIQUE: AP and lateral radiographic images acquired of the right elbow. LIMITATIONS: Limited views FINDINGS: MINERALIZATION: Normal. BONES: Nonspecific appearance of the radial neck on AP views through casting material. JOINT: No effusion. SOFT TISSUES: No soft tissue swelling. No foreign body. OTHER: No other significant finding. IMPRESSION: Incomplete exam. Consider further evaluation with routine radiographs/CT of the right e lbow when able, as clinically warranted. TECHNICAL DOCUMENTATION: JOB ID: [id number] [employer]- All Rights Reserved
--- NOTE | 2017-07-21 04:23 | RADIOLOGY REPORT (SQ) ---
EXAM DESCRIPTION: WRIST RIGHT 3 VIEWS COMPLETED DATE/TIME: 07/21/2017 3:52 am REASON FOR STUDY: post-reduction COMPARISON: None. NUMBER OF VIEWS: Three views. TECHNIQUE: AP, lateral, and oblique radiographic images acquired of the right wrist. LIMITATIONS: None. FINDINGS: Interval casting of previously described fracture sites of the right wrist otherwise witho ut significant change. IMPRESSION: NEGATIVE STUDY OF THE RIGHT WRIST. NO RADIOGRAPHIC EVIDENCE OF ACUTE INJURY. COMMENT: Fracture follow-up. Interval casting. TECHNICAL DOCUMENTATION: JOB ID: [id number] [employer]- All Rights Reserved
--- NOTE | 2017-07-21 04:58 | RADIOLOGY REPORT (SQ) ---
EXAM DESCRIPTION: WRIST RIGHT 2 VIEWS COMPLETED DATE/TIME: 07/21/2017 4:42 am REASON FOR STUDY: CLOSED REDUCTION WRIST COMPARISON: Total images 4. FLUOROSCOPY TIME: 6 seconds. 4 images saved to PACS. TECHNIQUE: Intra-operative images acquired during surgical procedure to evaluate progress. NUMBER OF IMAGES: 4 C-arm fluoroscopy LIMITATIONS: None. FINDINGS: Portable C-arm radiographs obtained and interpreted by the performing clinician at time of examination to facilitate surgical outcome. IMPRESSION: IMAGE(S) OBTAINED DURING PROCEDURE. COMMENT: Quality ID [id number]: Final reports for procedures using fluoroscopy that document radiation exp osure indices, or exposure time and number of fluorographic images (if radiation exposure indices are not available) Please consult full operative report of the attending physician for description of the procedure. TECHNICAL DOCUMENTATION: JOB ID: [id number] [employer]- All Rights Reserved
--- NOTE | 2017-07-21 05:13 | RADIOLOGY REPORT (SQ) ---
EXAM DESCRIPTION: NOT FOR OR FLUORO TO 1 HR COMPLETE DATE/TIME: 07/21/2017 4:42 am REASON FOR STUDY: wrist fracture reduction FINDINGS: Please see combined report for performance of procedure and radiologic supervision and int erpretation. IMPRESSION: Please see combined report for performance of procedure and radiologic supervision and i nterpretation.
== END 2017-07-21 04:06 | disposition home or self-care (01) ==
LOC: ER 23:44
PROC: 0PSHXZZ Reposition Right Radius, External Approach (ICD-10-PCS; principal; 2017-07-20)
PROC: 0PSKXZZ Reposition Right Ulna, External Approach (ICD-10-PCS; 2017-07-20)
DX: S62.101A Fracture of unspecified carpal bone, right wrist, initial encounter for closed fracture (principal); W01.0XXA Fall on same level from slipping, tripping and stumbling without subsequent striking against object, initial encounter; I10 Essential (primary) hypertension; Z96.651 Presence of right artificial knee joint; Z88.1 Allergy status to other antibiotic agents; Z91.018 Allergy to other foods; Z85.41 Personal history of malignant neoplasm of cervix uteri; Z90.49 Acquired absence of other specified parts of digestive tract; Z90.710 Acquired absence of both cervix and uterus
CPT/HCPCS: 99284; 96361; 99153; 99152; 96374; 73080; 76000; 73100; 73110 ×2; 70450; 25605; J2270; J7030; J2704

== ENCOUNTER 2018-05-02 14:31 | Emergency (ER) | payer MEDICARE, MEDICAID ==
--- NOTE | 2018-05-02 15:42 | ER Document Report ---
ED Medical Screen (RME) - General Chief Complaint: Bloody Stools Stated Complaint: RECTAL BLEED Time Seen by Provider: 05/02/18 15:30 Mode of Arrival: Ambulatory Information source: Patient Notes: 67-year-old female presents emergency department with complaints of rectal bleeding and lightheadedness that is been present for the last day. Patient states that she had a bowel movement yesterday with bright red blood. Patient states that this is been constant. No alleviating factors. Patient does have a history of hemorrhoids and follows up with Dr. Camacho. Patient denies any nausea , vomiting, diarrhea, chest pain, shortness breath, abdominal pain. Lightheadedness is constant. No alleviating or exacerbating factors. I have greeted and performed a rapid initial assessment of this patient. A comprehensive ED assessment and evaluation of the patient, analysis of test results and completion of the medical decision making process will be conducted by additional ED providers. PHYSICAL EXAMINATION: GENERAL: Well-appearing, well-nourished and in no acute distress. HEAD: Atraumatic, normocephalic. EYES: Pupils equal round extraocular movements intact, conjunctiva are normal. ENT: Nares patent NECK: Normal range of motion LUNGS: No respiratory distress Musculoskeletal: Normal range of motion NEUROLOGICAL: Normal speech, normal gait. PSYCH: Normal mood, normal affect. SKIN: Warm, Dry, normal turgor, no rashes or lesions noted. TRAVEL OUTSIDE OF THE [place] IN LAST 30 DAYS: No - Related Data Allergies/Adverse Reactions: almond Allergy (Intermediate, Verified 05/02/18 14:34) Hives peanut Allergy (Intermediate, Verified 05/02/18 14:34) Hives grape [Grape] Allergy (Mild, Verified 05/02/18 14:34) Hives tomato [Tomato] Allergy (Mild, Verified 05/02/18 14:34) Hives ciprofloxacin [From Cipro] Allergy (Verified 05/02/18 14:34) Difficulty breathing Past Medical History - Social History Chew tobacco use (# tins/day): No Frequency of alcohol use: None Drug Abuse: None - Past Medical History Cardiac Medical History: Reports: Hx Hypertension - 2 years/takes meds Denies: Hx Atrial Fibrillation, Hx Congestive Heart Failure, Hx Coronary Artery Disease, Hx Heart Attack, Hx Hypercholesterolemia, Hx Peripheral Vascular Disease, Hx Pulmonary Embolism, Hx Heart Murmur Pulmonary Medical History: Reports: Hx Asthma, Hx Bronchitis - Many years ago, Hx COPD Denies: Hx Pneumonia, Hx Respiratory Failure, Hx Sleep Apnea, Hx Tuberculosis Neurological Medical History: Renal/ Medical History: Denies: Hx Ovarian Cysts, Hx Peritoneal Dialysis, Hx Pelvic Inflammatory Disease Malignancy Medical History: Reports: Hx Cervical Cancer. Denies: Hx Breast Cancer, Hx Lung Cancer, Hx Ovarian Cancer GI Medical History: Reports: Hx Gastroesophageal Reflux Disease - occ.. Denies : Hx Crohn's Disease, Hx Hiatal Hernia, Hx Irritable Bowel, Hx Liver Failure, Hx Pancreatitis, Hx Ulcer Musculoskeltal Medical History: Reports Hx Arthritis, Denies Hx Fibromyalgia, Denies Hx Muscular Dystrophy, Reports Hx Musculoskeletal Trauma - Wrist Traumatic Medical History: Reports: Hx Fractures - Left Wrist, Left Foot Past Surgical History: Reports: Hx Breast Surgery - mass removed, Hx Cholecystectomy, Hx Hysterectomy, Hx Orthopedic Surgery - left foot. Denies: Hx Appendectomy, Hx Bowel Surgery, Hx Section, Hx Colostomy, Hx Coronary Artery Bypass Graft, Hx Gastric Bypass Surgery, Hx Herniorrhaphy, Hx Mastectomy, Hx Pacemaker, Hx Tonsillectomy, Hx Tubal Ligation - Immunizations Hx Diphtheria, Pertussis, Tetanus Vaccination: No Physical Exam - Vital signs Vitals: Temp Pulse Resp BP Pulse Ox 98.6 F 76 18 136/72 H 98 05/02/18 14:41 05/02/18 14:41 05/02/18 14:41 05/02/18 14:41 05/02/18 14:41 Course - Vital Signs Vital signs: Temp Pulse Resp BP Pulse Ox 98.6 F 76 18 136/72 H 98 05/02/18 14:41 05/02/18 14:41 05/02/18 14:41 05/02/18 14:41 05/02/18 14:41 Doctor's Discharge - Discharge Referrals: KARLOS SPENCER MD [Primary Care Provider] - Follow up as needed
[2018-05-02 16:11] LABS: ABSOLUTE EOSINOPHILS # (AUTO) 0.3 10^3/uL (0.0-0.6); ABSOLUTE LYMPHOCYTES (AUTO) 1.9 10^3/uL (0.5-4.7); ABSOLUTE MONOCYTES (AUTO) 0.5 10^3/uL (0.1-1.4); ABSOLUTE NEUT (AUTO) 5.1 10^3/uL (1.7-8.2); BASOPHILS % (AUTO) 0.5 % (0-2); HEMATOCRIT 32.7 % (36.0-47.0); HEMOGLOBIN 11.2 g/dL (12.0-15.5); MEAN CORPUSCULAR HEMOGLOBIN 29.2 pg (27.0-33.4); MEAN CORPUSCULAR HGB CONC 34.3 g/dL (32.0-36.0); MEAN CORPUSCULAR VOLUME 85 fl (80-97); MONOCYTES % (AUTO) 5.8 % (3-13); PLATELET COUNT 272 10^3/uL (150-450); RED BLOOD COUNT 3.84 10^6/uL (3.72-5.28); RED CELL DISTRIBUTION WIDTH 13.7 % (11.5-14.0); SEGMENTED NEUTROPHILS % (AUTO) 65.7 % (42-78); TOTAL CELLS COUNTED % (AUTO) 100 %; WHITE BLOOD COUNT 7.8 10^3/uL (4.0-10.5)
[2018-05-02 16:29] LABS: ALANINE AMINOTRANSFERASE 25 U/L (9-52); ALBUMIN 4.1 g/dL (3.5-5.0); ALKALINE PHOSPHATASE 97 U/L (38-126); ANION GAP 11 (5-19); ASPARTATE AMINO TRANSFERASE 24 U/L (14-36); BILIRUBIN,DIRECT 0.3 mg/dL (0.0-0.4); BILIRUBIN,TOTAL 0.3 mg/dL (0.2-1.3); BLOOD UREA NITROGEN 26 mg/dL (7-20); CALCIUM 9.3 mg/dL (8.4-10.2); CARBON DIOXIDE 29 mmol/L (22-30); CHLORIDE 104 mmol/L (98-107); GLUCOSE 84 mg/dL (75-110); POTASSIUM 4.6 mmol/L (3.6-5.0); SODIUM 143.6 mmol/L (137-145); TOTAL PROTEIN 7.2 g/dL (6.3-8.2)
--- NOTE | 2018-05-02 17:42 | ER Document Report ---
ED General - General Chief Complaint: Bloody Stools Stated Complaint: RECTAL BLEED Time Seen by Provider: 05/02/18 15:30 Mode of Arrival: Ambulatory TRAVEL OUTSIDE OF THE [place] IN LAST 30 DAYS: No - HPI Patient complains to provider of: Bloody bowel movements Notes: Patient coming in stating that she has multiple bloody bowel movements since day prior to arrival. Patient does have a history of hemorrhoids. Patient states blood bright red whenever she does have a bowel movement patient states her stool is soft. Patient states similar presentation when she had issues with hemorrhoids in the past. Patient denies any fevers chills nausea vomiting diarrhea. Patient states she was lightheaded earlier today however patient at this time is in no obvious distress since the asymptomatic - Related Data Allergies/Adverse Reactions: almond Allergy (Intermediate, Verified 05/02/18 14:34) Hives peanut Allergy (Intermediate, Verified 05/02/18 14:34) Hives grape [Grape] Allergy (Mild, Verified 05/02/18 14:34) Hives tomato [Tomato] Allergy (Mild, Verified 05/02/18 14:34) Hives ciprofloxacin [From Cipro] Allergy (Verified 05/02/18 14:34) Difficulty breathing Past Medical History - General Information source: Patient - Social History Smoking Status: Former Smoker Chew tobacco use (# tins/day): No Frequency of alcohol use: None Drug Abuse: None Family History: Reviewed & Not Pertinent, Arthritis, DM, Hyperlipidemia, Malignancy Patient has suicidal ideation: No Patient has homicidal ideation: No - Past Medical History Cardiac Medical History: Reports: Hx Hypertension - 2 years/takes meds Denies: Hx Atrial Fibrillation, Hx Congestive Heart Failure, Hx Coronary Artery Disease, Hx Heart Attack, Hx Hypercholesterolemia, Hx Peripheral Vascular Disease, Hx Pulmonary Embolism, Hx Heart Murmur Pulmonary Medical History: Reports: Hx Asthma, Hx Bronchitis - Many years ago, Hx COPD Denies: Hx Pneumonia, Hx Respiratory Failure, Hx Sleep Apnea, Hx Tuberculosis Neurological Medical History: Renal/ Medical History: Denies: Hx Ovarian Cysts, Hx Peritoneal Dialysis, Hx Pelvic Inflammatory Disease Malignancy Medical History: Reports: Hx Cervical Cancer. Denies: Hx Breast Cancer, Hx Lung Cancer, Hx Ovarian Cancer GI Medical History: Reports: Hx Gastroesophageal Reflux Disease - occ.. Denies : Hx Crohn's Disease, Hx Hiatal Hernia, Hx Irritable Bowel, Hx Liver Failure, Hx Pancreatitis, Hx Ulcer Musculoskeletal Medical History: Reports Hx Arthritis, Denies Hx Fibromyalgia, Denies Hx Muscular Dystrophy, Reports Hx Musculoskeletal Trauma - Wrist Traumatic Medical History: Reports: Hx Fractures - Left Wrist, Left Foot Past Surgical History: Reports: Hx Breast Surgery - mass removed, Hx Cholecystectomy, Hx Hysterectomy, Hx Orthopedic Surgery - left foot. Denies: Hx Appendectomy, Hx Bowel Surgery, Hx Section, Hx Colostomy, Hx Coronary Artery Bypass Graft, Hx Gastric Bypass Surgery, Hx Herniorrhaphy, Hx Mastectomy, Hx Pacemaker, Hx Tonsillectomy, Hx Tubal Ligation - Immunizations Hx Diphtheria, Pertussis, Tetanus Vaccination: No Review of Systems - Review of Systems Constitutional: No symptoms reported EENT: No symptoms reported Cardiovascular: No symptoms reported Respiratory: No symptoms reported Gastrointestinal: Other - Bright red blood per rectum Genitourinary: No symptoms reported Female Genitourinary: No symptoms reported Musculoskeletal: No symptoms reported Skin: No symptoms reported Hematologic/Lymphatic: No symptoms reported Neurological/Psychological: No symptoms reported Physical Exam - Vital signs Vitals: Pulse BP Pulse Ox 76 136/72 H 94 05/02/18 14:39 05/02/18 14:39 05/02/18 14:39 Interpretation: Normal - General General appearance: Appears well, Alert - HEENT Head: Normocephalic, Atraumatic Eyes: Normal Pupils: PERRL - Respiratory Respiratory status: No respiratory distress Chest status: Nontender Breath sounds: Normal Chest palpation: Normal - Cardiovascular Rhythm: Regular Heart sounds: Normal auscultation Murmur: No - Abdominal Inspection: Normal Distension: No distension Bowel sounds: Normal Tenderness: Nontender Organomegaly: No organomegaly - Rectal Notes: Extensive hemorrhage around the anus with no signs of thrombosed hemorrhoid. Patient rectal examination shows noted bright red blood on the gloved finger Hemoccult card test at bedside shows no signs of blood the windows are both clear the control did turn blue I am not color blind and can see the color blue - Back Back: Normal, Nontender - Extremities General upper extremity: Normal inspection, Nontender, Normal color, Normal ROM , Normal temperature General lower extremity: Normal inspection, Nontender, Normal color, Normal ROM , Normal temperature, Normal weight bearing. No: Milly's sign - Neurological Neuro grossly intact: Yes Cognition: Normal Orientation: AAOx4 Kamar Coma Scale Eye Opening: Spontaneous [place] Coma Scale Verbal: Oriented [place] Coma Scale Motor: Obeys Commands Kamar Coma Scale Total: 15 Speech: Normal Motor strength normal: LUE, RUE, LLE, RLE Sensory: Normal - Psychological Associated symptoms: Normal affect, Normal mood - Skin Skin Temperature: Warm Skin Moisture: Dry Skin Color: Normal Course - Re-evaluation Re-evalutation: 05/02/18 23:50 More likely bleeding when patient is having bowel movement from her hemorrhoids. Recommended starting him or cream follow-up with her local GI physician Dr. Camacho. Patient hemoglobin for 2 days of bleeding is otherwise stable. No signs of massive GI bleed upper or lower. Patient will be discharged home. - Vital Signs Vital signs: Temp Pulse Resp BP Pulse Ox 97.7 F 64 16 132/79 H 100 05/02/18 17:52 05/02/18 17:52 05/02/18 17:52 05/02/18 17:52 05/02/18 17:52 - Laboratory Result Diagrams: 05/02/18 15:56 05/02/18 15:56 Laboratory results interpreted by me: 05/02/18 05/02/18 15:56 15:56 Hgb 11.2 L Hct 32.7 L BUN 26 H Discharge - Discharge Clinical Impression: Bleeding external hemorrhoids Condition: Good Disposition: HOME, SELF-CARE Instructions: HC Hemorrhoid Cream ([facility]), Hemorrhoids ([facility]) Additional Instructions: Your physical examination today shows extensive hemorrhoids in the rectal area there is no signs of acute thrombosis of the hemorrhoids but more likely this is where your bleeding is coming from you have a bowel movement. Would recommend changing your Colace to the [employer] EX[employer] to make her stool softer. Also recommend applying the enalapril as directed to heal your hemorrhoids. Please follow-up with Dr. Camacho for further evaluation Prescriptions: Hydrocortisone/Pramoxine [Analpram Hc 2.5%-1% Lotion] 59 ml TP TID #1 tube Referrals: KARLOS SPENCER MD [NO LOCAL MD] - Follow up in 3-5 days LEELEE CAMACHO MD [ACTIVE STAFF] - Follow up as needed
[2018-05-02 17:54] VITALS: BP 132/79
--- NOTE | 2018-05-02 20:36 | EKG REPORT ---
SEVERITY:- NORMAL ECG - SINUS RHYTHM : Confirmed by: Mariya Singer MD 02-May-2018 20:36:04
== END 2018-05-02 17:54 | disposition home or self-care (01) ==
LOC: ER 14:31
DX: K64.4 Residual hemorrhoidal skin tags (principal); Z88.1 Allergy status to other antibiotic agents; Z91.010 Allergy to peanuts; Z91.018 Allergy to other foods; I10 Essential (primary) hypertension; J45.909 Unspecified asthma, uncomplicated; Z85.41 Personal history of malignant neoplasm of cervix uteri; K21.9 Gastro-esophageal reflux disease without esophagitis; M19.90 Unspecified osteoarthritis, unspecified site; Z90.49 Acquired absence of other specified parts of digestive tract; Z90.710 Acquired absence of both cervix and uterus; R40.2412 Glasgow coma scale score 13-15, at arrival to emergency department
CPT/HCPCS: 36415; 80053; 83690; 84484; 85025; 93005; 93010; 99284

== ENCOUNTER 2018-11-18 23:37 | Emergency (ER) | payer MEDICARE, MEDICAID ==
[2018-11-19] MEDS ORDERED: NORMAL SALINE 1000 ML 1,000 ML IV ONE (02:52)
[2018-11-19] MEDS ORDERED: MORPHINE SULFATE 10 MG/ML INJ IV ONE (02:53)
--- NOTE | 2018-11-19 02:56 | ER Document Report ---
ED GI/ - General Chief Complaint: Constipation Stated Complaint: POSSIBLE CONSTIPATION Time Seen by Provider: 11/19/18 02:37 Primary Care Provider: MECHE HASTINGS MD [Primary Care Provider] - Follow up as needed Notes: Patient is a 68-year-old female that comes to the emergency department for chief complaint of abdominal pain and swelling. She is 12 days postop brain aneurysmal repair, placed on oxycodone, states the pain medicine has constipated her. She has not had a bowel movement for 1 week (since 11/12/2018). Patient tells me that she began having really bad pain, she used her fingers and dog out a large ball of stool from her rectum, after this she had a "massive" bowel movement. She states abdominal swelling is gone, abdominal pain is gone, she denies headache, she denies vomiting, she denies fever. Patient states she normally takes tramadol for pain. TRAVEL OUTSIDE OF THE [place] IN LAST 30 DAYS: No - Related Data Allergies/Adverse Reactions: almond Allergy (Intermediate, Verified 05/02/18 14:34) Hives peanut Allergy (Intermediate, Verified 05/02/18 14:34) Hives grape [Grape] Allergy (Mild, Verified 05/02/18 14:34) Hives tomato [Tomato] Allergy (Mild, Verified 05/02/18 14:34) Hives ciprofloxacin [From Cipro] Allergy (Verified 05/02/18 14:34) Difficulty breathing Past Medical History - General Information source: Patient - Social History Smoking Status: Never Smoker Frequency of alcohol use: None Drug Abuse: None Lives with: Alone Family History: Reviewed & Not Pertinent, Arthritis, DM, Hyperlipidemia, Ma lignancy Patient has suicidal ideation: No Patient has homicidal ideation: No - Past Medical History Cardiac Medical History: Reports: Hx Hypertension - 2 years/takes meds Denies: Hx Atrial Fibrillation, Hx Congestive Heart Failure, Hx Coronary Artery Disease, Hx Heart Attack, Hx Hypercholesterolemia, Hx Peripheral Vascular Disease, Hx Pulmonary Embolism, Hx Heart Murmur Pulmonary Medical History: Reports: Hx Asthma, Hx Bronchitis - Many years ago, Hx COPD Denies: Hx Pneumonia, Hx Respiratory Failure, Hx Sleep Apnea, Hx Tuberculosis Neurological Medical History: Renal/ Medical History: Denies: Hx Ovarian Cysts, Hx Peritoneal Dialysis, Hx Pelvic Inflammatory Disease Malignancy Medical History: Reports: Hx Cervical Cancer. Denies: Hx Breast Cancer, Hx Lung Cancer, Hx Ovarian Cancer GI Medical History: Reports: Hx Gastroesophageal Reflux Disease - occ.. Denies: Hx Crohn's Disease, Hx Hiatal Hernia, Hx Irritable Bowel, Hx Liver Failure, Hx Pancreatitis, Hx Ulcer Musculoskeletal Medical History: Reports Hx Arthritis, Denies Hx Fibromyalgia, Denies Hx Muscular Dystrophy, Reports Hx Musculoskeletal Trauma - Wrist Traumatic Medical History: Reports: Hx Fractures - Left Wrist, Left Foot Past Surgical History: Reports: Hx Breast Surgery - mass removed, Hx Cholecystectomy, Hx Hysterectomy, Hx Orthopedic Surgery - left foot. Denies: Hx Appendectomy, Hx Bowel Surgery, Hx Section, Hx Colostomy, Hx Coronary Artery Bypass Graft, Hx Gastric Bypass Surgery, Hx Herniorrhaphy, Hx Mastectomy, Hx Pacemaker, Hx Tonsillectomy, Hx Tubal Ligation - Immunizations Hx Diphtheria, Pertussis, Tetanus Vaccination: No Review of Systems - Review of Systems Constitutional: No symptoms reported EENT: No symptoms reported Cardiovascular: No symptoms reported Respiratory: No symptoms reported Gastrointestinal: See HPI Genitourinary: No symptoms reported Female Genitourinary: No symptoms reported Musculoskeletal: No symptoms reported Skin: No symptoms reported Hematologic/Lymphatic: No symptoms reported Neurological/Psychological: See HPI Physical Exam - Vital signs Vitals: Temp Pulse Resp BP Pulse Ox 98.0 F 130 H 18 92/62 L 99 11/18/18 23:46 11/18/18 23:46 11/18/18 23:46 11/18/18 23:46 11/18/18 23:46 - Notes Notes: GENERAL: Alert, interacts well. No acute distress. Smiling and conversational. HEAD: Normocephalic, atraumatic. EYES: Pupils equal, round, and reactive to light. Extraocular movements intact. ENT: Oral mucosa moist, tongue midline. Oropharynx unremarkable. Airway patent. Nares patent, no nasal septal hematoma, TM's intact. NECK: Full range of motion. Supple. Trachea midline. LUNGS: Clear to auscultation bilaterally, no wheezes, rales, or rhonchi. No respiratory distress. HEART: Regular rate and rhythm. No murmur ABDOMEN: Soft, and completely non-tender. Non-distended. Bowel sounds present in all 4 quadrants. GENITOURINARY: Deferred EXTREMITIES: Moves all 4 extremities spontaneously. No edema, normal radial and dorsalis pedis pulses bilaterally. No cyanosis. BACK: no cervical, thoracic, lumbar midline tenderness. No saddle anesthesia, normal distal neurovascular exam. NEUROLOGICAL: Alert and oriented x3. Normal speech. [cranial nerves II through XII grossly intact]. PSYCH: Normal affect, normal mood. SKIN: Warm, dry, normal turgor. No rashes or lesions noted. There are blair over the right side of the forehead extending up to the scalp with no surrounding erythema, bleeding, dehiscence, or other abnormality noted. Course - Re-evaluation Re-evalutation: Patient initially tachycardic and hypotensive per initial vitals, this was rechecked and much improved, she was given IV fluids. Abdomen is completely nontender, patient states that she already disimpacted herself and had a large bowel movement. She is smiling, laughing, states that now she feels much better. She apologizes for yelling at the staff earlier. CBC shows leukocytosis, anemia, nonspecific given patient's recent operation. Chemistry unremarkable. X-ray was canceled because patient now has a soft benign abdomen with no abdominal complaints. She denies headache. Vital signs rechecked and were normal. Because of patient's lack points and self treatment she will be discharged on stool softeners, I discussed reducing Percocet possible, patient states she absolutely cannot do this and is taking more than she needs, she asks if she against because of her recent neurological procedure. Patient states understanding and agreement. Discussed return precautions, follow-up, patient states understanding and agreement with plan. - Vital Signs Vital signs: Temp Pulse Resp BP Pulse Ox 98.0 F 130 H 19 104/65 97 11/18/18 23:46 11/18/18 23:46 11/19/18 04:00 11/19/18 03:25 11/19/18 03:25 - Laboratory Result Diagrams: 11/19/18 03:25 11/19/18 03:25 Laboratory results interpreted by me: 11/19/18 11/19/18 03:25 03:25 WBC 13.7 H RBC 3.24 L Hgb 8.3 L Hct 25.5 L MCV 79 L MCH 25.5 L RDW 16.8 H Seg Neutrophils % 80.8 H Lymphocytes % 8.4 L Eosinophils % 6.2 H Absolute Neutrophils 11.0 H Absolute Eosinophils 0.8 H BUN 26 H Glucose 159 H Discharge - Discharge Clinical Impression: Abdominal pain Qualifiers: Abdominal location: generalized Qualified Code(s): R10.84 - Generalized abdominal pain Condition: Stable Additional Instructions: Reduce intake of Percocet to reduce constipation symptoms. Take the Colace stool softener instead of the current one as prescribed. Drink plenty fluids. Follow-up with both your pain management and your neurosurgeon. Return if you worsen including return abdominal pain, vomiting, fever, or any other concerning or worsening symptoms. Prescriptions: Docusate Sodium [Colace 100 mg Capsule] 100 mg PO ASDIR PRN #30 capsule PRN Reason: Referrals: MECHE HASTINGS MD [Primary Care Provider] - Follow up as needed
[2018-11-19] MEDS ORDERED: LIDOCAINE 2% JELLY 30 ML TUBE TOP ONE (03:08)
[2018-11-19 03:33] LABS: ABSOLUTE BASOPHILS # (AUTO) 0.2 10^3/uL (0.0-0.2); ABSOLUTE EOSINOPHILS # (AUTO) 0.8 10^3/uL (0.0-0.6); ABSOLUTE LYMPHOCYTES (AUTO) 1.2 10^3/uL (0.5-4.7); ABSOLUTE MONOCYTES (AUTO) 0.4 10^3/uL (0.1-1.4); BASOPHILS % (AUTO) 1.3 % (0-2); EOSINOPHILS % (AUTO) 6.2 % (0-6); HEMATOCRIT 25.5 % (36.0-47.0); HEMOGLOBIN 8.3 g/dL (12.0-15.5); LYMPHOCYTES % (AUTO) 8.4 % (13-45); MEAN CORPUSCULAR HEMOGLOBIN 25.5 pg (27.0-33.4); MEAN CORPUSCULAR HGB CONC 32.4 g/dL (32.0-36.0); MEAN CORPUSCULAR VOLUME 79 fl (80-97); MONOCYTES % (AUTO) 3.3 % (3-13); PLATELET COUNT 339 10^3/uL (150-450); RED BLOOD COUNT 3.24 10^6/uL (3.72-5.28); RED CELL DISTRIBUTION WIDTH 16.8 % (11.5-14.0); SEGMENTED NEUTROPHILS % (AUTO) 80.8 % (42-78); TOTAL CELLS COUNTED % (AUTO) 100 %; WHITE BLOOD COUNT 13.7 10^3/uL (4.0-10.5)
[2018-11-19 03:54] LABS: ANION GAP 10 (5-19); BLOOD UREA NITROGEN 26 mg/dL (7-20); CALCIUM 9.4 mg/dL (8.4-10.2); CARBON DIOXIDE 29 mmol/L (22-30); CHLORIDE 102 mmol/L (98-107); GLUCOSE 159 mg/dL (75-110); SODIUM 140.6 mmol/L (137-145)
[2018-11-19 07:10] VITALS: BP 128/67
== END 2018-11-19 04:40 | disposition home or self-care (01) ==
LOC: ER 23:37
DX: R10.84 Generalized abdominal pain (principal); K59.00 Constipation, unspecified; I10 Essential (primary) hypertension; J44.9 Chronic obstructive pulmonary disease, unspecified; Z98.890 Other specified postprocedural states; Z88.3 Allergy status to other anti-infective agents; Z91.018 Allergy to other foods; Z91.010 Allergy to peanuts; Z85.41 Personal history of malignant neoplasm of cervix uteri; Z90.49 Acquired absence of other specified parts of digestive tract; Z90.710 Acquired absence of both cervix and uterus
CPT/HCPCS: 99283; 36415; 85025; 80048; J7030

== ENCOUNTER 2020-04-30 21:55 | Emergency (ER) | payer MEDICARE, MEDICAID ==
[2020-04-30 22:20] VITALS: BP 142/81
--- NOTE | 2020-04-30 22:36 | ER Document Report ---
ED Medical Screen (RME) - General Chief Complaint: Leg Pain Stated Complaint: LEG PAIN Time Seen by Provider: 04/30/20 22:18 Primary Care Provider: FINA TATE MD [Primary Care Provider] - Follow up as needed Mode of Arrival: Wheelchair Information source: Patient Notes: HPI; 69-year-old female presents the emergency room complaining of increased pain and swelling to her left lower leg that started earlier today. She denies any trauma or injury. Concerned about a blood clot. She has no history of PEs or DVTs. She has had no recent travel. Has been more sedentary since COVID started. Took a tramadol around 8:30 PM with good pain relief. PE: Alert and oriented x3. Lungs: Clear to auscultation without rales, rhonchi, wheezes. Heart: Regular rate rhythm without murmurs, rubs, gallops. She has a negative Homans to the left. Patient with multiple varicosities noted to her bilateral lower extremities. There is no calf swelling. Multiple broken blood vessels noted to the left lower leg. It is nontender to palpation. Positive left pedal pulse. Capillary refill less than 3 seconds. I have greeted and performed a rapid initial assessment of this patient. A comprehensive ED assessment and evaluation of the patient, analysis of test results and completion of the medical decision making process will be conducted by additional ED providers. I have specifically instructed the patient or family members with the patient to immediately return to any nursing staff should anything change in the patient's condition or with their chief complaint. TRAVEL OUTSIDE OF THE [place] IN LAST 30 DAYS: No - Related Data Allergies/Adverse Reactions: almond Allergy (Intermediate, Verified 05/02/18 14:34) Hives peanut Allergy (Intermediate, Verified 05/02/18 14:34) Hives grape [Grape] Allergy (Mild, Verified 05/02/18 14:34) Hives tomato [Tomato] Allergy (Mild, Verified 05/02/18 14:34) Hives ciprofloxacin [From Cipro] Allergy (Verified 05/02/18 14:34) Difficulty breathing Past Medical History - Past Medical History Cardiac Medical History: Reports: Hx Hypertension - 2 years/takes meds Denies: Hx Atrial Fibrillation, Hx Congestive Heart Failure, Hx Coronary Artery Disease, Hx Heart Attack, Hx Hypercholesterolemia, Hx Peripheral Vascular Disease, Hx Pulmonary Embolism, Hx Heart Murmur Pulmonary Medical History: Reports: Hx Asthma, Hx Bronchitis - Many years ago, Hx COPD Denies: Hx Pneumonia, Hx Respiratory Failure, Hx Sleep Apnea, Hx Tuberculosis Neurological Medical History: Renal/ Medical History: Denies: Hx Ovarian Cysts, Hx Peritoneal Dialysis, Hx Pelvic Inflammatory Disease Malignancy Medical History: Reports: Hx Cervical Cancer. Denies: Hx Breast Cancer, Hx Lung Cancer, Hx Ovarian Cancer GI Medical History: Reports: Hx Gastroesophageal Reflux Disease - occ.. Denies: Hx Crohn's Disease, Hx Hiatal Hernia, Hx Irritable Bowel, Hx Liver Failure, Hx Pancreatitis, Hx Ulcer Musculoskeltal Medical History: Reports Hx Arthritis, Denies Hx Fibromyalgia, Denies Hx Muscular Dystrophy, Reports Hx Musculoskeletal Trauma - Wrist Traumatic Medical History: Reports: Hx Fractures - Left Wrist, Left Foot Past Surgical History: Reports: Hx Breast Surgery - mass removed, Hx Cholecystectomy, Hx Hysterectomy, Hx Orthopedic Surgery - left foot. Denies: Hx Appendectomy, Hx Bowel Surgery, Hx Section, Hx Colostomy, Hx Coronary Artery Bypass Graft, Hx Gastric Bypass Surgery, Hx Herniorrhaphy, Hx Mastectomy, Hx Pacemaker, Hx Tonsillectomy, Hx Tubal Ligation - Immunizations Hx Diphtheria, Pertussis, Tetanus Vaccination: No Physical Exam - Vital signs Vitals: Temp Pulse Resp BP Pulse Ox 98.3 F 78 16 142/81 H 93 04/30/20 22:15 04/30/20 22:15 04/30/20 22:15 04/30/20 22:15 04/30/20 22:15 Course - Vital Signs Vital signs: Temp Pulse Resp BP Pulse Ox 98.3 F 78 16 142/81 H 96 04/30/20 22:15 04/30/20 22:15 04/30/20 22:15 04/30/20 22:15 04/30/20 22:19 Doctor's Discharge - Discharge Referrals: FINA TATE MD [Primary Care Provider] - Follow up as needed
--- NOTE | 2020-04-30 22:46 | ER Document Report ---
HPI - HPI Patient complains to provider of: Left leg pain/swelling Time Seen by Provider: 04/30/20 22:18 Pain Level: Denies Context: See RME chart Associated Symptoms: None Exacerbated by: Denies Relieved by: Other - Tramadol Similar symptoms previously: No Recently seen / treated by doctor: No - ROS Systems Reviewed and Negative: Yes All other systems reviewed and negative - CONSTITUTIONAL Constitutional: DENIES: Fever - GASTROINTESTINAL Gastrointestinal: DENIES: Abdominal Pain, Nausea, Patient vomiting - REPRODUCTIVE Reproductive: DENIES: : - MUSCULOSKELETAL Musculoskeletal: REPORTS: Extremity pain - DERM Skin Color: Erythema Past Medical History - General Information source: Patient - Social History Smoking Status: Never Smoker Frequency of alcohol use: Occasional Drug Abuse: None Family History: Reviewed & Not Pertinent, Arthritis, DM, Hyperlipidemia, Malignancy - Past Medical History Cardiac Medical History: Reports: Hx Hypertension - 2 years/takes meds Denies: Hx Atrial Fibrillation, Hx Congestive Heart Failure, Hx Coronary Artery Disease, Hx Heart Attack, Hx Hypercholesterolemia, Hx Peripheral Vascular Disease, Hx Pulmonary Embolism, Hx Heart Murmur Pulmonary Medical History: Reports: Hx Asthma, Hx Bronchitis - Many years ago, Hx COPD Denies: Hx Pneumonia, Hx Respiratory Failure, Hx Sleep Apnea, Hx Tuberculosis Neurological Medical History: Renal/ Medical History: Denies: Hx Ovarian Cysts, Hx Peritoneal Dialysis, Hx Pelvic Inflammatory Disease Malignancy Medical History: Reports: Hx Cervical Cancer. Denies: Hx Breast Cancer, Hx Lung Cancer, Hx Ovarian Cancer GI Medical History: Reports: Hx Gastroesophageal Reflux Disease - occ.. Denies: Hx Crohn's Disease, Hx Hiatal Hernia, Hx Irritable Bowel, Hx Liver Failure, Hx Pancreatitis, Hx Ulcer Musculoskeletal Medical History: Reports Hx Arthritis, Denies Hx Fibromyalgia, Denies Hx Muscular Dystrophy, Reports Hx Musculoskeletal Trauma - Wrist Traumatic Medical History: Reports: Hx Fractures - Left Wrist, Left Foot Past Surgical History: Reports: Hx Breast Surgery - mass removed, Hx Cholecyst ectomy, Hx Hysterectomy, Hx Orthopedic Surgery - left foot. Denies: Hx Appendectomy, Hx Bowel Surgery, Hx Section, Hx Colostomy, Hx Coronary Artery Bypass Graft, Hx Gastric Bypass Surgery, Hx Herniorrhaphy, Hx Mastectomy, Hx Pacemaker, Hx Tonsillectomy, Hx Tubal Ligation - Immunizations Hx Diphtheria, Pertussis, Tetanus Vaccination: No Vertical Provider Document - CONSTITUTIONAL Agree With Documented VS: Yes Exam Limitations: No Limitations General Appearance: Mild Distress - INFECTION CONTROL TRAVEL OUTSIDE OF THE [place] IN LAST 30 DAYS: No - HEENT HEENT: Atraumatic, Normocephalic - NECK Neck: Normal Inspection, Supple - RESPIRATORY Respiratory: Breath Sounds Normal, No Respiratory Distress, Chest Non-Tender - CARDIOVASCULAR Cardiovascular: Regular Rate, Regular Rhythm, No Murmur - BACK Back: Normal Inspection - MUSCULOSKELETAL/EXTREMETIES Musculoskeletal/Extremeties: FROM, Non-Tender Notes: Bilateral lower extremities with multiple varicose veins. There are varicosities noted to both of her lower extremities. There is broken blood vessels noted to the left lower mcwilliams. They are not tender, they are not warm to touch. - NEURO Level of Consciousness: Awake, Alert, Appropriate Motor/Sensory: No Motor Deficit, No Sensory Deficit Notes: Negative Homans. Positive left pedal pulse. Capillary refill less than 3 seconds. Ambulatory with a steady gait. No calf swelling. - DERM Integumentary: Warm, Dry, No Rash Notes: Bilateral lower extremities with varicose veins and varicosities. Left lower mcwilliams with some broken blood vessels that are nontender, not warm to touch. Course - Re-evaluation Re-evalutation: 04/30/20 22:44 Counseled patient that there is no one here at this time of night to do an ultrasound of her leg to rule out a DVT. Patient has low risk factors for DVT no previous history of DVT or PEs. Patient was counseled that she could return tomorrow to have the study done. Patient states she has appointment on Sunday with her primary care physician she will wait until then if she has increased swelling, pain, or any new symptoms she will return to the emergency room. Counseled to take a daily baby aspirin. Patient was given strict return to the emergency room guidelines. Return for any new or worsening symptoms. All questions were answered. Patient verbalized understanding and agrees with plan of care. 04/30/20 23:06 04/30/20 23:07 - Vital Signs Vital signs: Temp Pulse Resp BP Pulse Ox 98.3 F 78 16 142/81 H 96 04/30/20 22:15 04/30/20 22:15 04/30/20 22:15 04/30/20 22:15 04/30/20 22:19 Discharge - Discharge Clinical Impression: Varicose veins of both lower extremities Qualifiers: Varicose vein complication: pain Qualified Code(s): I83.813 - Varicose veins of bilateral lower extremities with pain Varicosities of leg Qualifiers: Varicose vein complication: pain Laterality: left Qualified Code(s): I83.812 - Varicose veins of left lower extremity with pain Condition: Stable Disposition: HOME, SELF-CARE Instructions: Varicose Veins ([facility]) Additional Instructions: Follow-up with your primary care physician as scheduled. Take a daily baby aspirin. Return to the emergency room for any increasing pain, swelling, or worsening symptoms. Referrals: FINA TATE MD [Primary Care Provider] - Follow up as needed
== END 2020-04-30 22:50 | disposition home or self-care (01) ==
LOC: ER 21:55
DX: I83.813 Varicose veins of bilateral lower extremities with pain (principal); M79.605 Pain in left leg; M79.89 Other specified soft tissue disorders
CPT/HCPCS: 99283

== ENCOUNTER → 2020-05-11 | Outpatient (CLI) | payer MEDICARE, MEDICAID ==
--- NOTE | 2020-05-11 16:17 | RADIOLOGY REPORT (SQ) ---
EXAM DESCRIPTION: VENOUS UNILATERAL LOWER IMAGES COMPLETED DATE/TIME: 05/11/2020 3:52 pm REASON FOR STUDY: LLE EDEMA M79.89 OTHER SPECIFIED SOFT TISSUE DISORDERS Z12.31 ENCNTR SCREEN MAMM OGRAM FOR MALIGNANT NEOPLASM OF [place] COMPARISON: None. TECHNIQUE: Dynamic and static campos scale and color images acquired of the left leg venous system. Se lected spectral images acquired with additional compression and augmentation maneuvers. The contralat eral common femoral vein and saphenofemoral junction were also imaged. Images stored on PACS. LIMITATIONS: None. FINDINGS: COMMON FEMORAL: Normal phasicity, compression and augmentation. No visualized echogenic ma terial on campos scale. No defects on color images. FEMORAL: Normal compression and augmentation. No visualized echogenic material on campos scale. No defe cts on color images. POPLITEAL: Normal compression, augmentation. No visualized echogenic material on campos scale. No defec ts on color images. CALF VESSELS: Normal compression, augmentation. No visualized echogenic material on campos scale. No de fects on color images. GSV and SSV: Normal compression, augmentation. No visualized echogenic material on campos scale. No def ects on color images. ANY DEEP VENOUS INSUFFICIENCY: No. ANY EVIDENCE OF POPLITEAL CYST: No. OTHER: No other significant finding. CONTRALATERAL COMMON FEMORAL VEIN AND SAPHENOFEMORAL JUNCTION: Normal phasicity, compression and augmentation. No visualized echogenic material on campos scale. No de fects on color images. IMPRESSION: NO EVIDENCE DVT OR SVT IN THE LEFT LEG. TECHNICAL DOCUMENTATION: JOB ID: [id number] 2010 [employer]- All Rights Reserved Reading location - IP/workstation name: [email or web address]
== END ==
LOC: SP 14:04
PROVIDERS: ATTEND Nurse Practitioner Family
DX: Z12.31 Encounter for screening mammogram for malignant neoplasm of breast (principal); M79.89 Other specified soft tissue disorders
CPT/HCPCS: 77067; 93971

== ENCOUNTER 2020-07-29 08:56 | Outpatient (CLI) | payer MEDICARE, MEDICAID ==
[~2020-07-29 08:56] MED LIST changes: -BUPIVACAINE INJ/PF LIPOSOME/PF 266 MG/20 ML SDV IJ PRN; -CEFAZOLIN INJ 1 GM VIAL IV PRN; -IBUPROFEN 800 MG/NS 250 ML IV PRN; +IRON DEXTRAN COMPLEX 25 MG in SYRINGE, DISPOSABLE, 1 EACH IV PRN; +IRON DEXTRAN COMPLEX 775 MG in NORMAL SALINE 500 ML IV PRN; -LACTATED RINGERS 1000 ML IV PRN; -LANSOPRAZOLE 15 MG TAB.RAP.DR PO PRN; -LIDOCAINE 0.5% INJ-PF (5 MG/ML) 50 ML SDV SUBCUT PRN; +NORMAL SALINE 250 ML IV PRN; -OXYCODONE HCL SR 10 MG TABLET PO PRN; -SCOPOLAMINE HYDROBROMIDE 1.5 MG PATCH.TD72 TOP PRN; -VANCOMYCIN HCL 1,000 MG in DEXTROSE 5%-WATER 250 ML IV PRN
[2020-07-29 09:24] VITALS: BP 98/65
== END 2020-07-29 14:29 | disposition home or self-care (01) ==
LOC: II 08:56 → 5TH 09:11 → II 14:29
PROVIDERS: ATTEND Internal Medicine
DX: D50.8 Other iron deficiency anemias (principal); K90.9 Intestinal malabsorption, unspecified
CPT/HCPCS: 96365; 96366; 96375; J1750; J7040; J3490

== ENCOUNTER 2020-08-05 09:38 | Outpatient (CLI) | payer MEDICARE, MEDICAID ==
[~2020-08-05 09:38] MED LIST changes: -IRON DEXTRAN COMPLEX 25 MG in SYRINGE, DISPOSABLE, 1 EACH IV PRN; -IRON DEXTRAN COMPLEX 775 MG in NORMAL SALINE 500 ML IV PRN; +IRON DEXTRAN COMPLEX 800 MG in NORMAL SALINE 500 ML IV PRN
[2020-08-05 09:57] VITALS: BP 105/50
== END 2020-08-05 14:03 | disposition home or self-care (01) ==
LOC: II 09:38 → 5TH 09:40 → II 14:03
PROVIDERS: ATTEND Internal Medicine
DX: D50.8 Other iron deficiency anemias (principal); K90.9 Intestinal malabsorption, unspecified
CPT/HCPCS: 96365; 96366; J1750; J7040

== ENCOUNTER 2020-10-02 11:11 | Emergency (ER) | payer MEDICARE, MEDICAID ==
--- NOTE | 2020-10-02 11:41 | RADIOLOGY REPORT (SQ) ---
EXAM DESCRIPTION: CT HEAD WITHOUT IMAGES COMPLETED DATE/TIME: 10/02/2020 11:27 am REASON FOR STUDY: bed 18 stroke alert COMPARISON: 2017. TECHNIQUE: Axial images acquired through the brain without intravenous contrast. Images reviewed wi th bone, brain and subdural windows. Images stored on PACS. All CT scanners at this facility use dose modulation, iterative reconstruction, and/or weight based d osing when appropriate to reduce radiation dose to as low as reasonably achievable (ALARA). [facility]: Dose Right [facility]: SureCare [facility]: Dose Right [facility]: Teradose 4D [facility]: Smart [employer] RADIATION DOSE: CT Rad equipment meets quality standard of care and radiation dose reduction techniq ues were employed. CTDIvol: 53.2 mGy. DLP: 1044 mGy-cm. mGy. LIMITATIONS: None. FINDINGS: VENTRICLES: Normal size and contour. CEREBRUM: No mass effect. No hemorrhage. No midline shift. Normal campos/white matter differentiatio n. No evidence for acute territorial infarction. CEREBELLUM: No mass effect. No hemorrhage. No alteration of density. No evidence for acute infarct ion. EXTRAAXIAL SPACES: No fluid collections. ORBITS AND GLOBE: Symmetrical contour of the globes. CALVARIUM: Since the prior study, patient has had right temporal craniotomy. No acute fracture ident ified. No worrisome bone lesion. PARANASAL SINUSES: No air-fluid level. SOFT TISSUES: No hematoma. IMPRESSION: No acute intracranial hemorrhage or acute territorial infarct. COMMENT: Pertinent positive or negative findings of the imaging study reported as a CRITICAL EXAM t o ER PROVIDER at11:34 on 10/02/2020. Category of Critical Exam: Stroke alert. TECHNICAL DOCUMENTATION: JOB ID: [id number]: Final reports with documentation of one or more dose reduction techniques (e.g., Automate d exposure control, adjustment of the mA and/or kV according to patient size, use of iterative recons truction technique) 2010 [employer]- All Rights Reserved Reading location - IP/workstation name: [email or web address]
[2020-10-02 11:42] LABS: ABSOLUTE EOSINOPHILS # (AUTO) 0.2 10^3/uL (0.0-0.6); ABSOLUTE LYMPHOCYTES (AUTO) 1.6 10^3/uL (0.5-4.7); ABSOLUTE MONOCYTES (AUTO) 0.4 10^3/uL (0.1-1.4); ABSOLUTE NEUT (AUTO) 5.1 10^3/uL (1.7-8.2); BASOPHILS % (AUTO) 0.6 % (0-2); HEMATOCRIT 37.3 % (36.0-47.0); HEMOGLOBIN 12.9 g/dL (12.0-15.5); LYMPHOCYTES % (AUTO) 22.1 % (13-45); MEAN CORPUSCULAR HEMOGLOBIN 30.2 pg (27.0-33.4); MEAN CORPUSCULAR HGB CONC 34.6 g/dL (32.0-36.0); MEAN CORPUSCULAR VOLUME 87 fl (80-97); PLATELET COUNT 200 10^3/uL (150-450); RED BLOOD COUNT 4.28 10^6/uL (3.72-5.28); RED CELL DISTRIBUTION WIDTH 16.9 % (11.5-14.0); SEGMENTED NEUTROPHILS % (AUTO) 69.3 % (42-78); TOTAL CELLS COUNTED % (AUTO) 100 %; WHITE BLOOD COUNT 7.3 10^3/uL (4.0-10.5)
[2020-10-02 11:47] LABS: INTERNATIONAL RATION (INR) 0.95; PROTHROMBIN TIME 12.9 SEC (11.4-15.4)
[2020-10-02 11:48] LABS: PARTIAL THROMBOPLASTIN TIME 52.1 SEC (23.5-35.8)
[2020-10-02 12:07] LABS: ALBUMIN 4.2 g/dL (3.5-5.0); ALKALINE PHOSPHATASE 102 U/L (38-126); ANION GAP 9 (5-19); ASPARTATE AMINO TRANSFERASE 45 U/L (14-36); BILIRUBIN,DIRECT 0.2 mg/dL (0.0-0.4); BILIRUBIN,TOTAL 0.4 mg/dL (0.2-1.3); BLOOD UREA NITROGEN 19 mg/dL (7-20); CALCIUM 9.7 mg/dL (8.4-10.2); CARBON DIOXIDE 26 mmol/L (22-30); CHLORIDE 106 mmol/L (98-107); CREATINE KINASE 91 U/L (30-135); GLUCOSE 102 mg/dL (75-110); POTASSIUM 4.4 mmol/L (3.6-5.0); TOTAL PROTEIN 7.1 g/dL (6.3-8.2)
--- NOTE | 2020-10-02 12:09 | RADIOLOGY REPORT (SQ) ---
EXAM DESCRIPTION: CHEST SINGLE VIEW IMAGES COMPLETED DATE/TIME: 10/02/2020 10:26 am REASON FOR STUDY: bed 18 stroke alert COMPARISON: None. EXAM PARAMETERS: NUMBER OF VIEWS: One view. TECHNIQUE: Single frontal radiographic view of the chest acquired. RADIATION DOSE: NA LIMITATIONS: None. FINDINGS: LUNGS AND PLEURA: Lungs are hyperinflated. No opacities, masses or pneumothorax. No pleur al effusion. MEDIASTINUM AND HILAR STRUCTURES: No masses. Contour normal. HEART AND VASCULAR STRUCTURES: Heart normal in size. Normal vasculature. BONES: No acute findings. HARDWARE: None in the chest. OTHER: No other significant finding. IMPRESSION: No acute cardiopulmonary disease. Hyperinflated lungs which can be seen with obstructiv e lung disease. TECHNICAL DOCUMENTATION: JOB ID: [id number] 2010 [employer]- All Rights Reserved Reading location - IP/workstation name: [email or web address]
[2020-10-02 12:19] LABS: CREATINE KINASE MB 1.27 ng/mL (<4.55); TROPONIN I < 0.012 ng/mL
[2020-10-02] MEDS ORDERED: ATORVASTATIN CALCIUM 40 MG TABLET PO ONE (13:57)
[2020-10-02] MEDS ORDERED: ASPIRIN 81 MG TABLET, CHEWABLE PO ONE (13:58)
--- NOTE | 2020-10-02 14:55 | EKG REPORT ---
SEVERITY:- NORMAL ECG - SINUS RHYTHM : Confirmed by: David Thakkar 02-Oct-2020 14:54:43
--- NOTE | 2020-10-02 15:37 | ER Document Report ---
Entered by FINA SEO SCRIBE 10/02/20 1343 Acting as scribe for:BISHNU OSULLIVAN MD ED Neuro Symptoms/Deficit - General Chief Complaint: Weakness Stated Complaint: WEAKNESS Time Seen by Provider: 10/02/20 13:05 Primary Care Provider: TANNER ROBLES FNP [NO LOCAL MD] - Follow up as needed Information source: Patient, [facility] Records Notes: This 70 year old female patient presents to the emergency department today with complaints of a sudden onset of dizziness, nausea, and unsteadiness on her feet prior to arrival. Patient mentions that she is a Catholic and she was on her computer and phone "witnessing" today when her Internet went down. Patient states that when her internet went down she stood up to go to the bathroom and all of these symptoms began suddenly. Patient is no longer nauseated or dizzy but she does still have some left upper extremity weakness. TRAVEL OUTSIDE OF THE [place] IN LAST 30 DAYS: No - Related Data Allergies/Adverse Reactions: almond Allergy (Intermediate, Verified 05/02/18 14:34) Hives peanut Allergy (Intermediate, Verified 05/02/18 14:34) Hives grape [Grape] Allergy (Mild, Verified 05/02/18 14:34) Hives tomato [Tomato] Allergy (Mild, Verified 05/02/18 14:34) Hives ciprofloxacin [From Cipro] Allergy (Verified 05/02/18 14:34) Difficulty breathing Home Medications: Meloxicam, Lisinopril, Tramadol, Omeprazole Past Medical History - General Information source: Patient - Social History Smoking Status: Current Some Day Smoker Cigarette use (# per day): Yes Frequency of alcohol use: None Drug Abuse: None Lives with: Alone Family History: Reviewed & Not Pertinent, Arthritis, DM, Hyperlipidemia, Malignancy - Past Medical History Cardiac Medical History: Reports: Hx Hypertension Pulmonary Medical History: Reports: Hx Asthma, Hx Bronchitis, Hx COPD Neurological Medical History: Malignancy Medical History: Reports: Hx Cervical Cancer GI Medical History: Reports: Hx Gastroesophageal Reflux Disease Musculoskeletal Medical History: Reports Hx Arthritis, Reports Hx Musculoskeletal Trauma - Wrist Traumatic Medical History: Reports: Hx Fractures - Left Wrist, Left Foot Past Surgical History: Reports: Hx Breast Surgery - mass removed, Hx Cholecystectomy, Hx Hysterectomy, Hx Neurologic Surgery - aneurysm clipped Nov 05, 2018, Hx Orthopedic Surgery - left foot - Immunizations Hx Diphtheria, Pertussis, Tetanus Vaccination: No Review of Systems - Review of Systems Constitutional: No symptoms reported EENT: No symptoms reported Cardiovascular: See HPI, Dizziness Respiratory: No symptoms reported Gastrointestinal: See HPI, Nausea Genitourinary: No symptoms reported Female Genitourinary: No symptoms reported Musculoskeletal: No symptoms reported Skin: No symptoms reported Hematologic/Lymphatic: No symptoms reported Neurological/Psychological: See HPI, Weakness - LUE -: Yes All other systems reviewed and negative Physical Exam - Vital signs Vitals: Temp Pulse Resp BP Pulse Ox 98.2 F 68 16 140/90 H 99 10/02/20 11:30 10/02/20 11:30 10/02/20 11:30 10/02/20 11:30 10/02/20 11:30 - Notes Notes: Physical Exam: General: Alert, appears well. HEENT: Normocephalic. Atraumatic. PERRL. Extraocular movements intact. Oropharynx clear. Neck: Supple. Non-tender. Respiratory: No respiratory distress. Clear and equal breath sounds bilaterally. Cardiovascular: Regular rate and rhythm. Abdominal: Normal Inspection. Non-tender. No distension. Normal Bowel Sounds. Back: No gross abnormalities. Extremities: Moves all four extremities. Upper extremities: Left full stack web developer strength is 4/5, right full stack web developer strength is 5/5. Mild difficulty with [id number] testing on the left. Lower extremities: Normal inspection. No edema. Normal ROM. Neurological: Normal cognition. AAOx4. Normal speech. Psychological: Normal affect. Normal Mood. Skin: Warm. Dry. Normal color. Course - Re-evaluation Re-evalutation: 10/02/20 13:59 Patient refused to have an MRI done despite this significance of her symptoms. She states she is claustrophobic and is unwilling to try even with IV anxiety medication. 10/02/20 14:00 The patient was not offered TPA because the symptoms were quite mild, and she is refusing MRI to confirm that this is an acute stroke. She is now outside the window for TPA. She also has past history of cerebral aneurysms. She stated that she would leave [facility] because she would refuse to do the MRI, and refusing admission. I prepared all the paperwork, discussed the case with the hospitalist, wrote prescriptions for aspirin and atorvastatin. 10/02/20 14:03 I was just informed by the nurse that the patient changed her mind and now is willing to get the MRI done. I erased all the discharge instructions and prescriptions. 10/02/20 14:21 The patient did agree to the MRI, however she does not carry a card designating the type of clip that was used for her aneurysm. I have called to [facility] and requested the get that information for me and fax a copy detailing the type of clip so that we can proceed with the MRI. 10/02/20 15:55 [facility] called back and stated that the only way they could provide the requested information was to send down a patient signed request and give it to their medical records department and the request would probably not be filled today. I called back and I got that message, and they spoke with her neurosurgeon and they suggested we call the outside sales account representative Tj Robert. He sent us a generic MRI safety information page for that particular clip, but when he was told we needed something with the patient's name showing that she got that particular clip, he said they do not have that information in their sys tem and cannot provide it. They also had a neurologist called me from [facility] who recommended given the time since symptoms, and the normal CTA that had been done 3 days ago(which we were not aware of until they looked in the records) the patient be admitted by the hospitalist service and by Sunday the proper paperwork could be obtained. 10/02/20 16:32 I discussed the case with the hospitalist service again, this time I spoke with Dr. Marcelo Ballard and he wanted to call down to [facility] to try to find someone who would be willing to open the chart and print out the page that indicates gene t this patient got a particular type of clip. Within minutes of hanging up the phone, the nurse told me the patient was signing out AMA. I did not get a chance to speak with her before she left, how ever I saw her down the into the hallway walking with her purse on the right shoulder hanging on her left side and her reaching into her purse to place some paperwork with her left hand. 10/02/20 20:18 The nurse reported that the patient called back sometime after she left inquiring about the medications I had discussed putting her on before she agreed to getting her MRI. I had the nurse relay to her that the atorvastatin dose she got here would be okay until she could see her primary care provider on Sunday morning, and that she should take a baby aspirin every day. - Vital Signs Vital signs: Temp Pulse Resp BP Pulse Ox 98.2 F 68 15 143/92 H 99 10/02/20 11:30 10/02/20 11:30 10/02/20 12:01 10/02/20 12:01 10/02/20 12:01 - Laboratory Results Result Diagrams: 10/02/20 11:30 10/02/20 11:30 Laboratory Results Interpreted: 10/02/20 10/02/20 10/02/20 11:30 11:30 11:30 RDW 16.9 H APTT 52.1 H AST 45 H ALT 59 H Critical Laboratory Results Reviewed: No Critical Results - See radiology report - Radiology Results Critical Radiology Results Reviewed: No Critical Results - EKG Interpretation by Me EKG shows normal: Sinus rhythm, [place], Intervals, QRS Complexes, ST-T Waves Rate: Normal - 71 Rhythm: NSR When compared to previous EKG there are: No significant change ED Alteplase Inc/Exc Criteria - Inclusion Criteria: 1: Patient presented to ED within 4.5 hours of acute ischemic stroke symptom onset? -: Yes 2: Did baseline CT exclude intracranial hemorrhage and/or other risk factors? -: Yes 3: Is the age of the patient 18 years of age or greater? -: Yes : If any of the above questions are answered "NO" then stop, patient is not a candidate for Alteplase, : If all of the above questions are answered "YES" then continue with Exclusion Criteria. - Exclusion Criteria: 1: Is there evidence of intracranial hemorrhage on baseline CT? -: No 2: Is there suspicion of subarachnoid hemorrhage (even if CT negative)? -: No 3: Is there a history of serious head trauma, recent previous stroke or VT within 3 months? -: No 4: Does the patient have a clinical presentation consistent with VT or post-VT pericarditis? -: No 5: Is there history of intracranial hemorrhage? -: No 6: On repeated measurement is Systolic BP greater than 185mmHg or Diastolic BP greater that 110 mmHg and is aggressive treatment needed to reduce blood pressure to these limits (e.g. constant infusion of an anti-hypertensive)? -: No 7: Did the patient awake with stroke symptoms? -: No 8: Has the patient had a lumbar puncture or an arterial puncture at a non- compressile site within 7 days? -: No 9: With in the last 14 days did the patient have surgery or major trauma? -: No 10: Is the patient or less than 2 weeks? -: No 11: Was there any active bleeding or acute trauma? -: No 12: Does the patient have intracranial neoplasm, arteriovenous malformation or aneurysm? -: No 13: Does the patient have abnormal glucose (less than 50 or greater than 400mg/dl)? Record glucose in Comment. -: No 14: Patient has rapidly improving symptoms at the time Alteplase is to be Administered. -: No 15: Does the patient have any risks for bleeding, including but not limited to: a.: Current use of Coumadin with PT greater than 15 seconds or INR greater than 1.7. b.: Current use of Pradaxa (Dabigatran). c.: Heparin administereed within the past 48 hours and PTT elevated. d.: Platelet count less than 100,000/mm. e.: Major surgery or serious trauma within 14 days. f.: Gastrointestinal or gynecological urinary bleeding within 14 days. g.: Myocardial Infarction (VT) within 3 months. -: No : If the answer to any of the above questions is "YES" then stop, the patient is not a candidate for Alteplase. : If the answer to all of the above questions is "NO" then the patient may be eligible for the Administration of Alteplase. : If the patient is noted to have seizure activity at onset of Stroke symptoms; Consult Neurologist for further evaluation. - The patient is: -: Included and is eligible to receive Alteplase. *Initiate bed placement at [facility] level of care* --: No Reviewed risks & benefits of thrombolytic therapy: I have reviewed the risks and benefits of thrombolytic therapy with the patient and/or his/her family. Yes -: Excluded and not eligible to receive Alteplase for the above exclusions. --: No -: Excluded and not eligible to receive Alteplase for other reasons (specify in comments): --: Yes - See the HPI and the course documentation for reasons against TPA. - Diagnosis of TIA: -: Patient presented with transient symptoms that are now resolved and no other neurologic findings are currently present. List symptoms in comments. -: Patient is NOT a candidate for tPA. -: ____(put name in comment) has been consulted for admission and continued evaluation of risk factor assessment. ED NIH Stroke Scale - NIH Stroke Scale *: 1. NIH scale should be completed with appropriate accompanying assessment tools. *: 2. The NIH should reflect what the patient is capable of doing and should not be coached by the clinician. 1a. Level of Consciousness: 0=Alert;keenly responsive -: 1=Drowsy -: 2=Obtunded -: 3=Coma/unresponsive or reflex to noxious stimuli. 1a. Responses: 0 1b. Orientation Questions: a. What month is it? -: b. How old are you? -: 0=Answers both questions correctly. -: 1=Answers one question correctly or patient is intubated or has orotracheal trauma. -: 2=Answers neither question correctly. 1b. Responses: 0 1c. Response to commands: a. Open and close eyes? -: b. Chart Snatcher and release hand? -: Credit is given despite weakness. Demonstration of task is permitted. Substitute command if hands cannot be used. -: 0=Performs both tasks correctly -: 1=Performs one task correctly -: 2=Performs neither task correctly 1c. Responses: 0 2. Gaze: Establish eye contact and instruct patient to "Follow my finger" -: 0=Normal -: 1=Partial gaze palsy. Gaze is abnormal in one or both eyes, but where forced deviation or total gaze paresis is not present. -: 2=Forced deviation or total gaze paresis. 2. Responses: 0 3. Visual Vega: Sees fingers in all four quadrants. -: 0=No visual loss. -: 1=Partial hemianopsia. -: 2=Complete hemianopsia. -: 3=Bilateral hemianopsia (including Cortical blindness) 3. Responses: 0 4. Facial Movement: Instruct patient to: -: a. Show me your teeth -: b. Raise your eyebrows -: c. Close your eyes -: d. Smile -: 0=Normal symmetrical movement -: 1=Minor paralysis (flattened nasolabial fold, asymmetry on smiling). -: 2=Partial paralysis (total or near total paralysis of lower face). -: 3=Complete paralysis of upper and lower face 4. Responses: 0 5. Motor functions (left arm): Alternate sides and extend each arm with palms down (90 degrees if sitting or 45 degrees for supine). -: 0=No drift;limb holds for full 10 seconds. -: 1=Drift; limb holds but drifts down before full 10 seconds, but does not hit bed. -: 2=Some effort against gravity; limb cannot get to or maintain position. -: 3=No effort against gravity; limb falls. -: 4=No movement. -: UN=Amputation, joint fusion, explain in comments. 5. Responses (left arm): 1 5. Motor Functions (right arm): Alternate sides and extend each arm with palms down (90 degrees if sitting or 45 degrees for supine). -: 0=No drift;limb holds for full 10 seconds. -: 1=Drift; limb holds but drifts down before full 10 seconds, but does not hit bed. -: 2=Some effort against gravity; limb cannot get to or maintain position. -: 3=No effort against gravity; limb falls. -: 4=No movement. -: UN=Amputation, joint fusion, explain in comments. 5. Responses (right arm): 0 6. Motor Functions (left leg): With patient lying supine, alternate sides and extend each leg (30 degrees always while supine). -: 0=No drift, leg holds position for full 5 seconds -: 1=Drift; leg falls before full 5 seconds but does not hit bed. -: 2=Some effort against gravity, leg falls to bed but some effort against gravity. -: 3=No effort against gravity, leg falls to bed immediately. -: 4=No movement. -: UN=Amputation, joint fusion; explain in comments. 6. Responses (left leg): 0 6. Motor Functions (right leg): With patient lying supine, alternate sides and extend each leg (30 degrees always while supine). -: 0=No drift, leg holds position for full 5 seconds -: 1=Drift; leg falls before full 5 seconds but does not hit bed. -: 2=Some effort against gravity, leg falls to bed but some effort against gravity. -: 3=No effort against gravity, leg falls to bed immediately. -: 4=No movement. -: UN=Amputation, joint fusion; explain in comments. 6. Responses (right leg): 0 7. Limb Ataxia: With eyes open instruct patient to: -: a. "Touch your finger to your nose". -: b. "Touch your heel to your mcwilliams" -: 0=Absent -: 1=Present in one limb. -: 2=Present in two limbs. -: UN=Amputation or joint fusion; explain in comments. 7. Responses: 1 7. If ataxia present choose as appropriate: Left arm 8. Sensory: Test sensation using pinprick or noxious stimuli. Test as many body parts as possible. -: 0=Normal;no sensory loss -: 1=Mile to moderate sensory loss (patient feels pin prick but is less sharp on affected side). -: 2=Severe or total sensory loss. 8. Responses: 0 9. Best Language: Instruct patient to: -: a. "Describe what you see in this picture." -: b. "Name the items in this picture." -: c. "Read these sentences." -: 0=No aphasia, normal -: 1=Mild to moderate aphasia. -: 2=Severe aphasia -: 3=Mute, global aphasia, no usable speech or auditory comprehension. 9. Responses: 0 10. Articulation, Dysarthia: Instruct patient to: -: "Read these words" or "Repeat these words" -: 0=Normal -: 1=Mild to moderate; patient may slur some words but can be understood without difficulty. -: 2=Severe; patients speech so slurred as to be unintelligible in the absence of dysphasia. -: UN=Intubated or other physical barrier, explain in comments. 10. Responses: 0 11. Extinction or inattention: 0=No abnormality -: 1= Visual, tactile, auditory, spatial, or personal inattention or extinction to bilateral simulation in one or the sensory modalities. -: 2=Profound carole-inattention or carole-inattention to more than one modality; does not recognize own hand. 11. Responses: 0 Total Score: 2 Discharge - Discharge Clinical Impression: Left arm weakness, Episode of dizziness Disposition: AGAINST MEDICAL ADVICE Referrals: SLAVEN,TANNER N, MACHINE HOSE CUTTER [NO LOCAL MD] - Follow up as needed I personally performed the services described in the documentation, reviewed and edited the documentation which was dictated to the scribe in my presence, and it accurately records my words and actions.
[2020-10-02 16:32] VITALS: BP 141/79
== END 2020-10-02 16:35 | disposition left against medical advice (07) ==
LOC: ER 11:11
DX: R53.1 Weakness (principal); R42 Dizziness and giddiness; R11.0 Nausea; R26.81 Unsteadiness on feet; F40.240 Claustrophobia; F17.210 Nicotine dependence, cigarettes, uncomplicated; M19.90 Unspecified osteoarthritis, unspecified site; K21.9 Gastro-esophageal reflux disease without esophagitis; I10 Essential (primary) hypertension; J44.9 Chronic obstructive pulmonary disease, unspecified; Z79.1 Long term (current) use of non-steroidal anti-inflammatories (NSAID); Z79.899 Other long term (current) drug therapy; Z98.890 Other specified postprocedural states; Z86.79 Personal history of other diseases of the circulatory system; Z85.41 Personal history of malignant neoplasm of cervix uteri; Z91.018 Allergy to other foods; Z91.010 Allergy to peanuts; Z88.1 Allergy status to other antibiotic agents; Z53.20 Procedure and treatment not carried out because of patient's decision for unspecified reasons
CPT/HCPCS: 93005; 99285; 36415; 82553; 82550; 85025; 85610; 85730; 80053; 84484; 71045; 70450; 93010; A9270 ×2